=== PATIENT | female | born 1940 | race African-American/Black ===

== ENCOUNTER 2017-10-30 14:20 | Inpatient (IN) | payer MEDICARE, MEDICAID ==
[~2017-10-30] VITALS: Ht 157.5 cm; Wt 68.5 kg
[~2017-10-30 14:20] MED LIST: ARIP15TA7; ASPI-1159 PO; ATOR20TA PO; ATOR20TA65; CALC0.5C7; DOCU-138 PO; IBUP-2030; IRBE300T18; IRBE300T42 PO; NAPR-677; NEBI10TA2 PO; OXYC30TA2; PANT40TA4 PO; PROAIR; VERA240C2 PO
[2017-10-30 15:00] VITALS: BP 114/61
[2017-10-30] MEDS ORDERED: DIPHENHYDRAMINE 25MG CAPSULE PO PRN (16:00)
[2017-10-30] MEDS ORDERED: GUAIFENESIN 200MG/10ML SUGAR FREE UDC PO PRN (16:00)
[2017-10-30 16:30] LABS: BASOPHILS % 0.4 % (0.0-2.0); EOSINOPHILS % 1.7 % (0.0-5.0); HEMATOCRIT. 33.4 % (36.0-48.0); HEMOGLOBIN. 11.4 g/dL (12.0-16.0); LYMPHOCYTES % 24.5 % (20.0-50.0); MEAN CORPUSCULAR HEMOGLOBIN 31.9 pg (28.0-32.0); MEAN CORPUSCULAR VOLUME 93.2 fL (81.0-99.0); MEAN PLATELET VOLUME 8.1 fl (7.4-10.4); MONOCYTES % 14.2 % (2.0-8.0); NEUTROPHILS % 59.2 % (40.0-76.0); PLATELET 229 x1000/uL (130-400); RED BLOOD CELL COUNT 3.59 mill/uL (4.2-5.4)
[2017-10-30 16:40] LABS: CHLORIDE 104 mEq/L (98-107)
[2017-10-30 16:52] LABS: PREALBUMIN 8.3 mg/dL (20.0-40.0)
[2017-10-30] MEDS: NEBIVOLOL HCL 5 MG TABLET PO SCH ×2 (17:00→18:30)
[2017-10-30] MEDS ORDERED: RIVAROXABAN 10 MG TABLET PO SCH (17:00)
[2017-10-30] MEDS ORDERED: NITROGLYCERIN 0.4MG TABLET SL SL PRN (17:00)
[2017-10-30] MEDS ORDERED: NA PHOS,M-B/NA PHOS,DI-BA ENEMA 118ML PR PRN (17:00)
[2017-10-30] MEDS ORDERED: DOCUSATE SODIUM 100MG CAPSULE PO SCH (17:00)
[2017-10-30] MEDS ORDERED: IPRATROPIUM/ALBUTEROL 0.5-3(2.5)MG/3ML NEB HHN PRN (17:00)
[2017-10-30] MEDS ORDERED: HYDROCODONE/ACETAMINOPHEN 10/325MG TABLET PO PRN (17:00)
[2017-10-30] MEDS ORDERED: CLONIDINE 0.1MG TABLET PO PRN (17:00)
[2017-10-30] MEDS ORDERED: ONDANSETRON 4MG ODT PO PRN (17:00)
[2017-10-30] MEDS ORDERED: MAGNESIUM/ALUMINUM HYDROXIDE/SIMETHICONE 30ML UDC PO PRN (17:00)
[2017-10-30] MEDS: DOCUSATE SODIUM 100MG CAPSULE PO SCH (17:12)
[2017-10-30] MEDS: FERROUS SULFATE 300MG/5ML UDC PO SCH (17:13)
[2017-10-30] MEDS: RIVAROXABAN 20 MG TABLET PO SCH (17:13)
[2017-10-30] MEDS: DILTIAZEM HCL 30MG TABLET PO SCH ×2 (17:14→23:38)
[2017-10-30 20:00] VITALS: BP 106/64
[2017-10-30] MEDS: FAMOTIDINE 20MG TABLET PO SCH (22:30)
[2017-10-30] MEDS: ASCORBIC ACID 500 MG TABLET PO SCH (22:30)
[2017-10-31] MEDS: ACETAMINOPHEN 325MG TABLET PO PRN ×3 (01:48→18:27)
[2017-10-31] MEDS: DILTIAZEM HCL 30MG TABLET PO SCH ×3 (06:00→18:00)
[2017-10-31 08:00] VITALS: BP 128/77
[2017-10-31] MEDS: DOCUSATE SODIUM 100MG CAPSULE PO SCH ×2 (08:29→16:28)
[2017-10-31] MEDS: ZINC SULFATE 220 MG ( 50 ) CAPSULE PO SCH (08:29)
[2017-10-31] MEDS: ASCORBIC ACID 500 MG TABLET PO SCH ×2 (08:29→20:56)
[2017-10-31] MEDS: NEBIVOLOL HCL 5 MG TABLET PO SCH ×2 (08:31→17:00)
[2017-10-31] MEDS: FERROUS SULFATE 300MG/5ML UDC PO SCH ×3 (08:34→16:28)
[2017-10-31] MEDS: RIVAROXABAN 20 MG TABLET PO SCH (16:29)
[2017-10-31 20:00] VITALS: BP 109/75
[2017-10-31] MEDS: FAMOTIDINE 20MG TABLET PO SCH (20:56)
[2017-10-31 22:34] LABS: CLARITY URINE CLEAR (CLEAR); COLOR URINE YELLOW (YELLOW); KETONES URINE NEGATIVE (NEGATIVE); LEUKOCYTE ESTERASE URINE TRACE (NEGATIVE); NITRITE URINE NEGATIVE (NEGATIVE); OCCULT BLOOD URINE NEGATIVE (NEGATIVE); PROTEIN URINE NEGATIVE (NEGATIVE); SPECIFIC GRAVITY URINE 1.012 (1.005-1.030)
[2017-11-01] MEDS: ACETAMINOPHEN 325MG TABLET PO PRN (02:56)
[2017-11-01] MEDS: DILTIAZEM HCL 30MG TABLET PO SCH ×2 (06:00)
[2017-11-01 06:36] LABS: BASOPHILS % 0.9 % (0.0-2.0); EOSINOPHILS % 1.9 % (0.0-5.0); HEMATOCRIT. 33.2 % (36.0-48.0); HEMOGLOBIN. 10.8 g/dL (12.0-16.0); LYMPHOCYTES % 38.7 % (20.0-50.0); MEAN CORPUSCULAR HEMOGLOBIN 30.6 pg (28.0-32.0); MEAN PLATELET VOLUME 8.3 fl (7.4-10.4); MONOCYTES % 13.5 % (2.0-8.0); PLATELET 261 x1000/uL (130-400); RED BLOOD CELL COUNT 3.53 mill/uL (4.2-5.4); RED CELL DISTRIBUTION WIDTH 13.9 % (11.6-14.6)
[2017-11-01 07:48] LABS: CHLORIDE 102 mEq/L (98-107)
[2017-11-01 07:52] LABS: FOLIC ACID (FOLATE) SERUM 16.1 ng/mL (>5.38)
[2017-11-01 08:00] VITALS: BP 95/72
[2017-11-01 08:05] LABS: PHOSPHORUS 3.2 mg/dL (2.5-4.9)
[2017-11-01 08:07] LABS: LDL CHOLESTEROL 91 mg/dL (5-100); TOTAL IRON BINDING CAPACITY 146 ug/dL (250-450)
[2017-11-01 08:08] LABS: HDL CHOLESTEROL 50 mg/dL (40-59)
[2017-11-01] MEDS: NEBIVOLOL HCL 5 MG TABLET PO SCH (09:00)
[2017-11-01] MEDS: ASCORBIC ACID 500 MG TABLET PO SCH (09:00)
[2017-11-01] MEDS: FERROUS SULFATE 300MG/5ML UDC PO SCH (09:00)
[2017-11-01] MEDS: DOCUSATE SODIUM 100MG CAPSULE PO SCH (09:00)
[2017-11-01] MEDS: ZINC SULFATE 220 MG ( 50 ) CAPSULE PO SCH (09:00)
[2017-11-04 13:07] LABS: 25-HYDROXY VITAMIN D3 20 ng/mL (.)
== END 2017-11-01 09:15 | disposition left against medical advice (07) | DRG 535 ==
PROVIDERS: ADMIT Physical Medicine & Rehabilitation Spinal Cord Injury Medicine; ATTEND Internal Medicine
DX: S72.044A Nondisplaced fracture of base of neck of right femur, initial encounter for closed fracture (principal); E43 Unspecified severe protein-calorie malnutrition; I95.9 Hypotension, unspecified; I11.0 Hypertensive heart disease with heart failure; I43 Cardiomyopathy in diseases classified elsewhere; I48.0 Paroxysmal atrial fibrillation; I50.9 Heart failure, unspecified; I08.1 Rheumatic disorders of both mitral and tricuspid valves; D64.9 Anemia, unspecified; E78.00 Pure hypercholesterolemia, unspecified; M19.90 Unspecified osteoarthritis, unspecified site; Z96.659 Presence of unspecified artificial knee joint; K21.9 Gastro-esophageal reflux disease without esophagitis; M79.609 Pain in unspecified limb; R26.9 Unspecified abnormalities of gait and mobility; R53.81 Other malaise; E87.6 Hypokalemia; D72.819 Decreased white blood cell count, unspecified; Z68.27 Body mass index [BMI] 27.0-27.9, adult; Z88.0 Allergy status to penicillin; W18.39XA Other fall on same level, initial encounter; Y93.89 Activity, other specified; Y92.89 Other specified places as the place of occurrence of the external cause; Y99.8 Other external cause status
CPT/HCPCS: 36415; 80053; 80061; 81003; 82270; 82306; 82607; 82728; 82746; 83036; 83540; 83550; 83735; 84100; 84134; 84443; 85025; 87086; 92523; 93970; 97110; 97162; 97166; 97530; 97535

== ENCOUNTER 2018-01-24 13:14 | Emergency (ER) | payer MEDICAID, MEDICARE ==
[~2018-01-24] VITALS: Ht 160 cm; Wt 59.0 kg
[2018-01-24] MEDS ORDERED: SODIUM CHLORIDE 0.9% 1,000 ML IV ONE (14:06)
[2018-01-24] MEDS ORDERED: ONDANSETRON HCL 4MG/2ML VIAL IV STA (14:06)
[2018-01-24] MEDS ORDERED: MORPHINE SULFATE 4 MG/ML CPJ (NOT FOR IM USE) IV STA (14:06)
[2018-01-24 14:23] LABS: BASOPHILS % 1.2 % (0.0-2.0); EOSINOPHILS % 3.5 % (0.0-5.0); HEMATOCRIT. 36.2 % (36.0-48.0); HEMOGLOBIN. 12.3 g/dL (12.0-16.0); LYMPHOCYTES % 33.3 % (20.0-50.0); MEAN CORPUSCULAR HEMOGLOBIN 32.6 pg (28.0-32.0); MEAN CORPUSCULAR VOLUME 96.2 fL (81.0-99.0); MEAN PLATELET VOLUME 7.5 fl (7.4-10.4); MONOCYTES % 3.6 % (2.0-8.0); NEUTROPHILS % 58.4 % (40.0-76.0); PLATELET 344 x1000/uL (130-400); RED BLOOD CELL COUNT 3.76 mill/uL (4.2-5.4); RED CELL DISTRIBUTION WIDTH 12.6 % (11.6-14.6)
[2018-01-24 14:26] LABS: CHLORIDE 106 mEq/L (98-107)
[2018-01-24 14:51] LABS: PROTHROMBIN TIME 10.6 sec (9.4-11.6)
[2018-01-24 15:35] LABS: CLARITY URINE CLEAR (CLEAR); COLOR URINE YELLOW (YELLOW); KETONES URINE NEGATIVE (NEGATIVE); LEUKOCYTE ESTERASE URINE NEGATIVE (NEGATIVE); NITRITE URINE NEGATIVE (NEGATIVE); OCCULT BLOOD URINE NEGATIVE (NEGATIVE); PROTEIN URINE NEGATIVE (NEGATIVE); SPECIFIC GRAVITY URINE 1.011 (1.005-1.030)
[2018-01-24] MEDS ORDERED: KETOROLAC 15MG/ML VIAL IV ONE (17:15)
[2018-01-24 18:17] VITALS: BP 130/78
== END 2018-01-24 18:23 | disposition home or self-care (01) ==
LOC: ER 13:14 → CANBEDREQ 20:49
DX: G89.18 Other acute postprocedural pain (principal); M25.551 Pain in right hip; I48.2 Chronic atrial fibrillation; I25.10 Atherosclerotic heart disease of native coronary artery without angina pectoris; K21.9 Gastro-esophageal reflux disease without esophagitis; E78.00 Pure hypercholesterolemia, unspecified; I10 Essential (primary) hypertension; Z96.653 Presence of artificial knee joint, bilateral; Z79.82 Long term (current) use of aspirin; Z88.0 Allergy status to penicillin
CPT/HCPCS: 36415; 71045; 73502; 73562; 73590; 73700; 74176; 80053; 81003; 83690; 83880; 84484; 85025; 85610; 85730; 93005; 93970; 96374; 96375; 99285; J1885; J2270; J2405; J7030

== ENCOUNTER 2018-04-26 05:19 | Inpatient (IN) | payer MEDICARE, MEDICAID ==
[~2018-04-26] VITALS: Ht 160 cm; Wt 68.6 kg
[~2018-04-26 05:19] MED LIST changes: -ARIP15TA7; +ARIP15TA7 PO; -ATOR20TA65; +ATOR20TA65 PO; -CALC0.5C7; +CALC0.5C7 PO; -IBUP-2030; +IBUP-2030 PO; -IRBE300T18; +IRBE300T18 PO; -NAPR-677; +NAPR-677 PO; -OXYC30TA2; +OXYC30TA2 PO
[2018-04-26] MEDS ORDERED: ACETAMINOPHEN WITH CODEINE 300/30MG TABLET PO STA (08:19)
[2018-04-26 09:08] LABS: BASOPHILS % 1.1 % (0.0-2.0); EOSINOPHILS % 1.5 % (0.0-5.0); HEMATOCRIT. 32.6 % (36.0-48.0); HEMOGLOBIN. 10.7 g/dL (12.0-16.0); MEAN CORPUSCULAR HEMOGLOBIN 31.2 pg (28.0-32.0); MEAN CORPUSCULAR VOLUME 95.3 fL (81.0-99.0); MEAN PLATELET VOLUME 7.9 fl (7.4-10.4); MONOCYTES % 9.3 % (2.0-8.0); NEUTROPHILS % 41.1 % (40.0-76.0); PLATELET 225 x1000/uL (130-400); RED BLOOD CELL COUNT 3.42 mill/uL (4.2-5.4); RED CELL DISTRIBUTION WIDTH 13.9 % (11.6-14.6)
[2018-04-26 09:13] LABS: CHLORIDE 111 mEq/L (98-107)
[2018-04-26 09:32] LABS: INR 1.1; PROTHROMBIN TIME 11.4 sec (9.1-11.1)
[2018-04-26] MEDS ORDERED: FUROSEMIDE 20MG/2ML VIAL IVP ONE (10:30)
[2018-04-26] MEDS ORDERED: POTASSIUM CHLORIDE 10MEQ TABLET SR PO SCH (12:30)
[2018-04-26] MEDS ORDERED: DOCUSATE SODIUM 100MG CAPSULE PO PRN ×2 (14:30→15:00)
[2018-04-26] MEDS ORDERED: ENOXAPARIN 40MG/0.4ML SYR SUBCUT SCH (14:30)
[2018-04-26] MEDS ORDERED: DIPHENHYDRAMINE 50MG/ML VIAL IV PRN ×2 (14:30→15:00)
[2018-04-26] MEDS ORDERED: ACETAMINOPHEN 325MG TABLET PO PRN ×2 (14:30→15:00)
[2018-04-26] MEDS ORDERED: ONDANSETRON HCL 4MG/2ML INJ IV PRN ×2 (14:30→15:00)
[2018-04-26] MEDS ORDERED: CLONIDINE 0.1MG TABLET PO PRN ×2 (14:30→15:00)
[2018-04-26] MEDS ORDERED: GUAIFENESIN 200MG/10ML SUGAR FREE UDC PO PRN ×2 (14:30→15:00)
[2018-04-26] MEDS ORDERED: HYDROCODONE/ACETAMINOPHEN 5/325MG TABLET PO PRN (14:30)
[2018-04-26] MEDS ORDERED: NA PHOS,M-B/NA PHOS,DI-BA ENEMA 118ML PR PRN ×2 (14:30→15:00)
[2018-04-26] MEDS ORDERED: LORAZEPAM 2MG/ML CPJ IV PRN ×2 (14:30→15:00)
[2018-04-26] MEDS ORDERED: IPRATROPIUM/ALBUTEROL 0.5-3(2.5)MG/3ML NEB INH PRN (14:30)
[2018-04-26] MEDS ORDERED: MORPHINE SULFATE 2 MG/ML CPJ (NOT FOR IM USE) IV PRN (14:30)
[2018-04-26] MEDS ORDERED: MAGNESIUM/ALUMINUM HYDROXIDE/SIMETHICONE 30ML UDC PO PRN ×2 (14:30→15:00)
[2018-04-26] MEDS ORDERED: MORPHINE SULFATE 4 MG/ML CPJ (NOT FOR IM USE) IV PRN (15:00)
[2018-04-26 15:30] VITALS: BP 147/82
[2018-04-26] MEDS: FUROSEMIDE 40MG/4ML VIAL IV SCH (17:07)
[2018-04-26] MEDS: ENOXAPARIN 40MG/0.4ML SYR SUBCUT SCH (17:07)
[2018-04-26] MEDS: HYDROCODONE/ACETAMINOPHEN 5/325MG TABLET PO PRN (17:08)
[2018-04-26 20:00] VITALS: BP 116/71
[2018-04-26 21:07] LABS: CHLORIDE 110 mEq/L (98-107)
[2018-04-27] VITALS: BP 110/70
[2018-04-27 01:48] LABS: CREATINE KINASE 53 IU/L (26-192)
[2018-04-27 01:51] LABS: CREATINE KINASE MB FRACTION 1.1 ng/mL (0.5-3.6)
[2018-04-27 04:00] VITALS: BP 126/80
[2018-04-27 06:37] LABS: BASOPHILS % 0.4 % (0.0-2.0); EOSINOPHILS % 1.9 % (0.0-5.0); HEMATOCRIT. 32.3 % (36.0-48.0); HEMOGLOBIN. 10.7 g/dL (12.0-16.0); LYMPHOCYTES % 40.8 % (20.0-50.0); MEAN CORPUSCULAR HEMOGLOBIN 31.3 pg (28.0-32.0); MEAN CORPUSCULAR VOLUME 94.5 fL (81.0-99.0); MEAN PLATELET VOLUME 7.8 fl (7.4-10.4); MONOCYTES % 10.2 % (2.0-8.0); NEUTROPHILS % 46.7 % (40.0-76.0); PLATELET 220 x1000/uL (130-400); RED BLOOD CELL COUNT 3.41 mill/uL (4.2-5.4); RED CELL DISTRIBUTION WIDTH 13.8 % (11.6-14.6)
[2018-04-27] MEDS: FUROSEMIDE 40MG/4ML VIAL IV SCH ×2 (06:40→19:13)
[2018-04-27 06:54] LABS: CHLORIDE 111 mEq/L (98-107)
[2018-04-27 07:07] LABS: LDL CHOLESTEROL 75 mg/dL (5-100)
[2018-04-27 07:08] LABS: CREATINE KINASE 57 IU/L (26-192); CREATINE KINASE MB FRACTION 1.4 ng/mL (0.5-3.6)
[2018-04-27 07:09] LABS: HDL CHOLESTEROL 67 mg/dL (40-59); T4 FREE 1.48 ng/dL (0.76-1.46)
[2018-04-27 08:00] VITALS: BP 117/79
[2018-04-27] MEDS: ASPIRIN 81MG EC TABLET PO SCH (08:00)
[2018-04-27] MEDS ORDERED: POTASSIUM CHLORIDE 20MEQ TABLET SR PO SCH (08:45)
[2018-04-27] MEDS ORDERED: FUROSEMIDE 40MG/4ML VIAL IV SCH (09:00)
[2018-04-27] MEDS: HYDROCODONE/ACETAMINOPHEN 5/325MG TABLET PO PRN ×2 (11:08→22:33)
[2018-04-27 12:00] VITALS: BP 86/59
[2018-04-27 16:00] VITALS: BP 94/50
[2018-04-27] MEDS: ENOXAPARIN 40MG/0.4ML SYR SUBCUT SCH (19:15)
[2018-04-27 20:00] VITALS: BP 98/88
[2018-04-28] VITALS: BP 126/54
[2018-04-28] MEDS: IPRATROPIUM/ALBUTEROL 0.5-3(2.5)MG/3ML NEB INH PRN ×2 (01:38→13:18)
[2018-04-28 04:10] VITALS: BP 91/56
[2018-04-28] MEDS: FUROSEMIDE 40MG/4ML VIAL IV SCH ×2 (06:16→18:06)
[2018-04-28 06:48] LABS: HEMATOCRIT 34.7 % (36.0-48.0); HEMOGLOBIN 11.7 g/dL (12.0-16.0); MEAN CORPUSCULAR HEMOGLOBIN 31.6 pg (28.0-32.0); MEAN CORPUSCULAR VOLUME 93.9 fL (81.0-99.0); PLATELET 254 x1000/uL (130-400); RED BLOOD CELL COUNT 3.69 mill/uL (4.2-5.4); RED CELL DISTRIBUTION WIDTH 13.9 % (11.6-14.6)
[2018-04-28 08:37] VITALS: BP 123/51
[2018-04-28] MEDS ORDERED: POTASSIUM CHLORIDE 20MEQ TABLET SR PO SCH (09:45)
[2018-04-28] MEDS ORDERED: POTASSIUM CHLORIDE 20MEQ TABLET SR PO NR (09:45)
[2018-04-28] MEDS: ASPIRIN 81MG EC TABLET PO SCH (10:47)
[2018-04-28] MEDS: HYDROCODONE/ACETAMINOPHEN 5/325MG TABLET PO PRN ×2 (11:59→21:56)
[2018-04-28 12:49] VITALS: BP 100/65
[2018-04-28] MEDS ORDERED: VERAPAMIL HCL 2.5 MG/1 ML 2ML VIAL IV PRN (15:15)
[2018-04-28 17:08] VITALS: BP 130/54
[2018-04-28] MEDS: DIGOXIN 125MCG TABLET PO SCH (18:06)
[2018-04-28] MEDS: RIVAROXABAN 15 MG TABLET PO SCH (18:06)
[2018-04-28 20:00] VITALS: BP 96/58
[2018-04-28] MEDS: DILTIAZEM HCL 60MG TABLET PO SCH (21:50)
[2018-04-29] VITALS: BP 90/61
[2018-04-29 00:30] VITALS: BP 100/69
[2018-04-29 04:00] VITALS: BP 120/69
[2018-04-29] MEDS: HYDROCODONE/ACETAMINOPHEN 5/325MG TABLET PO PRN (04:59)
[2018-04-29] MEDS: DILTIAZEM HCL 60MG TABLET PO SCH (05:53)
[2018-04-29] MEDS: FUROSEMIDE 40MG/4ML VIAL IV SCH ×2 (06:15→17:49)
[2018-04-29 07:14] LABS: CHLORIDE 98 mEq/L (98-107)
[2018-04-29 07:16] LABS: HEMATOCRIT 35.3 % (36.0-48.0); HEMOGLOBIN 11.7 g/dL (12.0-16.0); MEAN CORPUSCULAR HEMOGLOBIN 31.2 pg (28.0-32.0); MEAN CORPUSCULAR VOLUME 94.4 fL (81.0-99.0); PLATELET 233 x1000/uL (130-400); RED BLOOD CELL COUNT 3.75 mill/uL (4.2-5.4); RED CELL DISTRIBUTION WIDTH 13.9 % (11.6-14.6)
[2018-04-29 07:20] LABS: LDL CHOLESTEROL 83 mg/dL (5-100)
[2018-04-29 07:22] LABS: HDL CHOLESTEROL 70 mg/dL (40-59)
[2018-04-29] MEDS: ASPIRIN 81MG EC TABLET PO SCH (09:42)
[2018-04-29 12:00] VITALS: BP 94/61
[2018-04-29] MEDS ORDERED: DILTIAZEM HCL 120MG CAPSULE CD 24HR PO SCH (12:45)
[2018-04-29 16:00] VITALS: BP 95/51
[2018-04-29] MEDS: DIGOXIN 125MCG TABLET PO SCH (17:49)
[2018-04-29] MEDS: RIVAROXABAN 15 MG TABLET PO SCH (17:49)
[2018-04-29 19:49] VITALS: BP 99/62
== END 2018-04-29 20:25 | disposition home or self-care (01) | DRG 308 ==
LOC: ER 05:19 → 6WST 12:32 → EDBEDREQ 12:33 → EDBEDREQTM 12:33 → ENRESERV 12:52 → CANBEDREQ 04-27 11:05
PROVIDERS: ADMIT Internal Medicine; ATTEND Internal Medicine
DX: I48.91 Unspecified atrial fibrillation (principal); I50.23 Acute on chronic systolic (congestive) heart failure; I11.0 Hypertensive heart disease with heart failure; I48.2 Chronic atrial fibrillation; E87.6 Hypokalemia; I42.0 Dilated cardiomyopathy; E78.00 Pure hypercholesterolemia, unspecified; I08.1 Rheumatic disorders of both mitral and tricuspid valves; I25.10 Atherosclerotic heart disease of native coronary artery without angina pectoris; M19.90 Unspecified osteoarthritis, unspecified site; Z96.653 Presence of artificial knee joint, bilateral; Z79.01 Long term (current) use of anticoagulants; Z87.81 Personal history of (healed) traumatic fracture; Z79.82 Long term (current) use of aspirin; Z79.899 Other long term (current) drug therapy; Z88.0 Allergy status to penicillin
CPT/HCPCS: 36415; 71045; 80048; 80053; 80061; 82550; 82553; 83735; 83880; 84439; 84443; 84484; 85025; 85027; 85610; 93005; 93306; 93970; 94640; 96374; 99285; J1650; J1940; J7620

== ENCOUNTER 2018-05-30 16:57 | Inpatient (IN) | payer MEDICARE, MEDICAID ==
[~2018-05-30] VITALS: Ht 154.9 cm; Wt 60.8 kg
[2018-05-30 19:43] LABS: BASOPHILS % 0.3 % (0.0-2.0); EOSINOPHILS % 1.4 % (0.0-5.0); HEMATOCRIT. 28.7 % (36.0-48.0); HEMOGLOBIN. 9.4 g/dL (12.0-16.0); LYMPHOCYTES % 40.9 % (20.0-50.0); MEAN CORPUSCULAR HEMOGLOBIN 31.4 pg (28.0-32.0); MEAN CORPUSCULAR VOLUME 96.3 fL (81.0-99.0); MEAN PLATELET VOLUME 7.4 fl (7.4-10.4); MONOCYTES % 10.3 % (2.0-8.0); NEUTROPHILS % 47.1 % (40.0-76.0); PLATELET 205 x1000/uL (130-400); RED BLOOD CELL COUNT 2.98 mill/uL (4.2-5.4); RED CELL DISTRIBUTION WIDTH 13.8 % (11.6-14.6)
[2018-05-30 19:50] LABS: CHLORIDE 108 mEq/L (98-107)
[2018-05-30] MEDS ORDERED: MAGNESIUM/ALUMINUM HYDROXIDE/SIMETHICONE 30ML UDC PO PRN (21:45)
[2018-05-30] MEDS ORDERED: ONDANSETRON HCL 4MG/2ML INJ IV PRN (21:45)
[2018-05-30] MEDS ORDERED: IPRATROPIUM/ALBUTEROL 0.5-3(2.5)MG/3ML NEB INH PRN (21:45)
[2018-05-30] MEDS ORDERED: DOCUSATE SODIUM 100MG CAPSULE PO PRN (21:45)
[2018-05-30] MEDS ORDERED: ZOLPIDEM TARTRATE 5MG TABLET PO PRN (21:45)
[2018-05-30] MEDS ORDERED: NITROGLYCERIN 0.4MG TABLET SL SL PRN (21:45)
[2018-05-30] MEDS ORDERED: NA PHOS,M-B/NA PHOS,DI-BA ENEMA 118ML PR PRN (21:45)
[2018-05-30] MEDS ORDERED: CLONIDINE 0.1MG TABLET PO PRN (21:45)
[2018-05-30] MEDS ORDERED: ACETAMINOPHEN 325MG TABLET PO PRN (21:45)
[2018-05-30] MEDS ORDERED: GUAIFENESIN 200MG/10ML SUGAR FREE UDC PO PRN (21:45)
[2018-05-30 22:42] LABS: FOLIC ACID (FOLATE) SERUM 10.9 ng/mL (>5.38)
[2018-05-30 23:29] VITALS: BP 125/69
[2018-05-30 23:47] VITALS: BP 125/69
[2018-05-30 23:54] VITALS: BP 125/69
[2018-05-31] MEDS ORDERED: POTASSIUM CHLORIDE 20MEQ TABLET SR PO NR
[2018-05-31] MEDS: DILTIAZEM HCL 60MG TABLET PO SCH ×2 (00:18→06:00)
[2018-05-31] MEDS: MORPHINE SULFATE 4 MG/ML CPJ (NOT FOR IM USE) IV PRN ×2 (00:32→05:59)
[2018-05-31 00:52] LABS: CREATINE KINASE 46 IU/L (26-192); CREATINE KINASE MB FRACTION < 1.0 ng/mL (0.5-3.6)
[2018-05-31] MEDS ORDERED: KCL 20MEQ/100ML PREMIX 100 ML IV NR (01:00)
[2018-05-31 03:58] VITALS: BP 95/47
[2018-05-31] MEDS: PANTOPRAZOLE SODIUM 40 MG/VIAL IV SCH ×2 (06:00→19:11)
[2018-05-31 07:39] VITALS: BP 86/59
[2018-05-31 07:46] LABS: CREATINE KINASE 42 IU/L (26-192); CREATINE KINASE MB FRACTION < 1.0 ng/mL (0.5-3.6)
[2018-05-31 12:42] VITALS: BP 88/55
[2018-05-31] MEDS ORDERED: MECLIZINE 12.5MG TABLET PO PRN (13:45)
[2018-05-31] MEDS: DILTIAZEM HCL 30MG TABLET PO SCH ×2 (14:00→21:12)
[2018-05-31] MEDS ORDERED: SODIUM CHLORIDE 0.9% 250 ML IV NR (14:00)
[2018-05-31] MEDS: MIDODRINE HCL 5MG TABLET PO SCH ×2 (15:20→19:11)
[2018-05-31 16:44] VITALS: BP 88/58
[2018-05-31] MEDS: RIVAROXABAN 15 MG TABLET PO SCH (19:11)
[2018-05-31 20:19] VITALS: BP 101/62
[2018-05-31] MEDS: TRAMADOL 50MG TABLET PO PRN (21:13)
[2018-06-01] VITALS: BP 90/57
[2018-06-01 03:38] VITALS: BP 125/87
[2018-06-01] MEDS: TRAMADOL 50MG TABLET PO PRN (03:45)
[2018-06-01] MEDS: PANTOPRAZOLE SODIUM 40 MG/VIAL IV SCH (06:12)
[2018-06-01] MEDS: DILTIAZEM HCL 30MG TABLET PO SCH ×3 (06:12→21:03)
[2018-06-01 07:14] LABS: BASOPHILS % 0.7 % (0.0-2.0); EOSINOPHILS % 2.1 % (0.0-5.0); HEMATOCRIT. 29.5 % (36.0-48.0); HEMOGLOBIN. 9.7 g/dL (12.0-16.0); LYMPHOCYTES % 41.4 % (20.0-50.0); MEAN CORPUSCULAR HEMOGLOBIN 31.7 pg (28.0-32.0); MEAN CORPUSCULAR VOLUME 96.2 fL (81.0-99.0); MEAN PLATELET VOLUME 7.8 fl (7.4-10.4); MONOCYTES % 11.6 % (2.0-8.0); NEUTROPHILS % 44.2 % (40.0-76.0); PLATELET 205 x1000/uL (130-400); RED BLOOD CELL COUNT 3.06 mill/uL (4.2-5.4); RED CELL DISTRIBUTION WIDTH 14.3 % (11.6-14.6)
[2018-06-01 07:52] LABS: CHLORIDE 107 mEq/L (98-107)
[2018-06-01 08:00] VITALS: BP 90/56
[2018-06-01] MEDS: MIDODRINE HCL 5MG TABLET PO SCH ×3 (09:05→17:18)
[2018-06-01 12:00] VITALS: BP 109/66
[2018-06-01 15:41] VITALS: BP 97/50
[2018-06-01] MEDS: RIVAROXABAN 15 MG TABLET PO SCH (17:18)
[2018-06-01 20:22] VITALS: BP 97/50
[2018-06-02] VITALS: BP 99/62
[2018-06-02] MEDS: TRAMADOL 50MG TABLET PO PRN ×2 (00:29→13:01)
[2018-06-02 04:00] VITALS: BP 93/57
[2018-06-02] MEDS: DILTIAZEM HCL 30MG TABLET PO SCH ×3 (05:29→21:53)
[2018-06-02] MEDS: PANTOPRAZOLE SODIUM 40 MG/VIAL IV SCH ×2 (06:35→17:30)
[2018-06-02 08:03] VITALS: BP 78/58
[2018-06-02] MEDS: MIDODRINE HCL 5MG TABLET PO SCH ×3 (08:57→17:26)
[2018-06-02 11:42] VITALS: BP 92/68
[2018-06-02 16:36] VITALS: BP 95/63
[2018-06-02] MEDS ORDERED: RIVAROXABAN 20 MG TABLET PO SCH (17:00)
[2018-06-02 20:00] VITALS: BP 106/62
[2018-06-02] MEDS ORDERED: ATORVASTATIN CALCIUM 10MG TABLET PO SCH (21:00)
[2018-06-03] VITALS: BP 94/61
[2018-06-03 04:00] VITALS: BP 91/56
[2018-06-03] MEDS: DILTIAZEM HCL 30MG TABLET PO SCH (06:41)
[2018-06-03] MEDS: MIDODRINE HCL 5MG TABLET PO SCH (08:24)
[2018-06-03] MEDS ORDERED: FAMOTIDINE 20MG TABLET PO SCH (09:00)
== END 2018-06-03 08:55 | disposition left against medical advice (07) | DRG 206 ==
LOC: ER 16:57 → 6WST 21:02 → EDBEDREQTM 21:04 → EDBEDREQ 21:04 → ENRESERV 21:16 → SUPCPDRO 21:30
PROVIDERS: ADMIT Internal Medicine; ATTEND Internal Medicine
DX: M94.0 Chondrocostal junction syndrome [Tietze] (principal); E44.0 Moderate protein-calorie malnutrition; I42.0 Dilated cardiomyopathy; I48.2 Chronic atrial fibrillation; I11.0 Hypertensive heart disease with heart failure; D63.8 Anemia in other chronic diseases classified elsewhere; E87.6 Hypokalemia; I50.9 Heart failure, unspecified; E78.00 Pure hypercholesterolemia, unspecified; F29 Unspecified psychosis not due to a substance or known physiological condition; I95.9 Hypotension, unspecified; Z53.21 Procedure and treatment not carried out due to patient leaving prior to being seen by health care provider; G89.29 Other chronic pain; I08.1 Rheumatic disorders of both mitral and tricuspid valves; M19.90 Unspecified osteoarthritis, unspecified site; Z79.01 Long term (current) use of anticoagulants; Z79.899 Other long term (current) drug therapy; Z68.25 Body mass index [BMI] 25.0-25.9, adult; Z79.82 Long term (current) use of aspirin; Z88.0 Allergy status to penicillin
CPT/HCPCS: 36415; 71045; 80061; 82550; 82553; 82607; 82746; 83540; 83550; 83735; 83880; 84443; 84484; 85379; 93005; 93970; 97162; 99285; A6261; C9113; J2270; J3480; J7030; J7040; J7050

== ENCOUNTER 2018-06-20 09:37 | Inpatient (IN) | payer MEDICARE, MEDICAID ==
[~2018-06-20] VITALS: Ht 154.9 cm; Wt 63.0 kg
[2018-06-20] MEDS ORDERED: IPRATROPIUM BROMIDE (0.02%) 0.5MG/2.5ML NEB HHN STA (10:26)
[2018-06-20] MEDS ORDERED: ALBUTEROL (0.083%) 2.5MG/3ML NEB HHN STA (10:26)
[2018-06-20 11:07] LABS: BASOPHILS % 0.3 % (0.0-2.0); EOSINOPHILS % 0.9 % (0.0-5.0); HEMATOCRIT. 30.4 % (36.0-48.0); LYMPHOCYTES % 26.5 % (20.0-50.0); MEAN CORPUSCULAR HEMOGLOBIN 32.2 pg (28.0-32.0); MEAN CORPUSCULAR VOLUME 98.3 fL (81.0-99.0); MEAN PLATELET VOLUME 7.7 fl (7.4-10.4); MONOCYTES % 9.4 % (2.0-8.0); NEUTROPHILS % 62.9 % (40.0-76.0); PLATELET 226 x1000/uL (130-400); RED CELL DISTRIBUTION WIDTH 14.6 % (11.6-14.6)
[2018-06-20 11:12] LABS: CHLORIDE 107 mEq/L (98-107)
[2018-06-20 11:19] LABS: INR 1.3; PARTIAL THROMBOPLASTIN TIME 30.5 sec (23.4-31.0); PROTHROMBIN TIME 13.1 sec (9.1-11.1)
[2018-06-20] MEDS ORDERED: FUROSEMIDE 40MG/4ML VIAL IVP ONE (11:30)
[2018-06-20] MEDS ORDERED: GUAIFENESIN 200MG/10ML SUGAR FREE UDC PO PRN (13:00)
[2018-06-20] MEDS ORDERED: MAGNESIUM/ALUMINUM HYDROXIDE/SIMETHICONE 30ML UDC PO PRN (13:00)
[2018-06-20] MEDS ORDERED: TRAMADOL 50MG TABLET PO PRN (13:00)
[2018-06-20] MEDS ORDERED: ACETAMINOPHEN 325MG TABLET PO PRN (13:00)
[2018-06-20] MEDS ORDERED: NITROGLYCERIN 0.4MG TABLET SL SL PRN (13:00)
[2018-06-20] MEDS ORDERED: ENOXAPARIN 40MG/0.4ML SYR SUBCUT SCH (13:00)
[2018-06-20] MEDS ORDERED: ZOLPIDEM TARTRATE 5MG TABLET PO PRN (13:00)
[2018-06-20] MEDS ORDERED: CLONIDINE 0.1MG TABLET PO PRN (13:00)
[2018-06-20] MEDS ORDERED: IPRATROPIUM/ALBUTEROL 0.5-3(2.5)MG/3ML NEB INH PRN (13:00)
[2018-06-20] MEDS ORDERED: NA PHOS,M-B/NA PHOS,DI-BA ENEMA 118ML PR PRN (13:00)
[2018-06-20 20:00] VITALS: BP 105/76
[2018-06-20 21:00] VITALS: BP 105/76
[2018-06-20] MEDS: SPIRONOLACTONE 25MG TABLET PO SCH (21:00)
[2018-06-20] MEDS: ASCORBIC ACID 500 MG TABLET PO SCH (21:00)
[2018-06-20] MEDS ORDERED: FAMOTIDINE 20MG TABLET PO SCH (21:00)
[2018-06-20] MEDS: FUROSEMIDE 40MG/4ML VIAL IVP SCH (21:00)
[2018-06-20] MEDS ORDERED: RIVAROXABAN 10 MG TABLET PO SCH (21:15)
[2018-06-20] MEDS: ATORVASTATIN CALCIUM 10MG TABLET PO SCH (22:22)
[2018-06-20] MEDS: FAMOTIDINE 20MG TABLET PO SCH (22:22)
[2018-06-20 23:17] LABS: CREATINE KINASE 80 IU/L (26-192)
[2018-06-20] MEDS: HYDROCODONE/ACETAMINOPHEN 5/325MG TABLET PO PRN (23:37)
[2018-06-21] VITALS: BP 97/63
[2018-06-21 04:00] VITALS: BP 119/74
[2018-06-21 08:00] VITALS: BP 107/76
[2018-06-21] MEDS: SPIRONOLACTONE 25MG TABLET PO SCH ×2 (09:45→21:36)
[2018-06-21] MEDS: FUROSEMIDE 40MG/4ML VIAL IVP SCH ×2 (09:45→18:36)
[2018-06-21] MEDS: ZINC SULFATE 220 MG ( 50 ) CAPSULE PO SCH (09:46)
[2018-06-21] MEDS: ASPIRIN 325MG EC TABLET PO SCH (09:46)
[2018-06-21] MEDS: FAMOTIDINE 20MG TABLET PO SCH ×2 (09:46→21:36)
[2018-06-21] MEDS: ASCORBIC ACID 500 MG TABLET PO SCH ×2 (09:47→21:36)
[2018-06-21 12:00] VITALS: BP 106/67
[2018-06-21] MEDS: ONDANSETRON HCL 4MG/2ML INJ IV PRN (13:32)
[2018-06-21 16:00] VITALS: BP 106/67
[2018-06-21] MEDS: RIVAROXABAN 20 MG TABLET PO SCH (18:36)
[2018-06-21 20:04] VITALS: BP 123/75
[2018-06-21] MEDS: DOCUSATE SODIUM 100MG CAPSULE PO PRN (21:35)
[2018-06-21] MEDS: ATORVASTATIN CALCIUM 10MG TABLET PO SCH (21:36)
[2018-06-21] MEDS: DILTIAZEM HCL 60MG TABLET PO SCH (21:36)
[2018-06-22 00:12] VITALS: BP 126/87
[2018-06-22 00:23] LABS: *AMPHETAMINES SCREEN URINE NEGATIVE (NEGATIVE); *BARBITURATES SCREEN URINE NEGATIVE (NEGATIVE); *BENZODIAZEPINES SCREEN URINE NEGATIVE (NEGATIVE); *COCAINE SCREEN URINE NEGATIVE (NEGATIVE); METHADONE URINE SCREEN NEGATIVE (NEGATIVE); OPIATES URINE SCREEN PRESUMTIVE POSITIVE (NEGATIVE); PHENCYCLIDINE URINE SCREEN NEGATIVE (NEGATIVE)
[2018-06-22 00:24] LABS: CANNABINOID URINE SCREEN NEGATIVE (NEGATIVE)
[2018-06-22 04:02] VITALS: BP 126/82
[2018-06-22] MEDS: HYDROCODONE/ACETAMINOPHEN 5/325MG TABLET PO PRN (04:41)
[2018-06-22] MEDS: DILTIAZEM HCL 60MG TABLET PO SCH ×4 (06:06→23:22)
[2018-06-22] MEDS: FUROSEMIDE 40MG/4ML VIAL IVP SCH ×2 (06:06→18:11)
[2018-06-22 08:00] VITALS: BP 104/63
[2018-06-22] MEDS: FAMOTIDINE 20MG TABLET PO SCH ×2 (09:03→20:33)
[2018-06-22] MEDS: ASPIRIN 325MG EC TABLET PO SCH (09:03)
[2018-06-22] MEDS: ASCORBIC ACID 500 MG TABLET PO SCH ×2 (09:03→20:33)
[2018-06-22] MEDS: SPIRONOLACTONE 25MG TABLET PO SCH ×2 (09:03→20:48)
[2018-06-22] MEDS: ZINC SULFATE 220 MG ( 50 ) CAPSULE PO SCH (09:03)
[2018-06-22 12:00] VITALS: BP 108/77
[2018-06-22 16:00] VITALS: BP 121/67
[2018-06-22] MEDS: RIVAROXABAN 20 MG TABLET PO SCH (18:06)
[2018-06-22 20:00] VITALS: BP 103/63
[2018-06-22] MEDS: ATORVASTATIN CALCIUM 10MG TABLET PO SCH (20:33)
[2018-06-22] MEDS: DOCUSATE SODIUM 100MG CAPSULE PO PRN (20:33)
[2018-06-23 00:04] VITALS: BP 122/80
[2018-06-23 04:00] VITALS: BP 136/76
[2018-06-23] MEDS: DILTIAZEM HCL 60MG TABLET PO SCH (06:54)
[2018-06-23] MEDS: FUROSEMIDE 40MG/4ML VIAL IVP SCH (06:54)
[2018-06-23] MEDS: ASPIRIN 325MG EC TABLET PO SCH (09:03)
[2018-06-23] MEDS: FAMOTIDINE 20MG TABLET PO SCH (09:03)
[2018-06-23] MEDS: ZINC SULFATE 220 MG ( 50 ) CAPSULE PO SCH (09:03)
[2018-06-23] MEDS: ASCORBIC ACID 500 MG TABLET PO SCH (09:04)
[2018-06-23] MEDS: SPIRONOLACTONE 25MG TABLET PO SCH (09:04)
[2018-06-23] MEDS: DOCUSATE SODIUM 100MG CAPSULE PO PRN (09:04)
[2018-06-23 11:54] VITALS: BP 109/70
[2018-06-23] MEDS: ONDANSETRON HCL 4MG/2ML INJ IV PRN (12:34)
== END 2018-06-23 14:58 | disposition home or self-care (01) | DRG 291 ==
LOC: ER 09:37 → 7WST 11:37 → EDBEDREQ 11:39 → ENRESERV 19:34
PROVIDERS: ADMIT Internal Medicine; ATTEND Internal Medicine
DX: I11.0 Hypertensive heart disease with heart failure (principal); J96.00 Acute respiratory failure, unspecified whether with hypoxia or hypercapnia; E44.1 Mild protein-calorie malnutrition; I50.43 Acute on chronic combined systolic (congestive) and diastolic (congestive) heart failure; I42.9 Cardiomyopathy, unspecified; I48.91 Unspecified atrial fibrillation; D63.8 Anemia in other chronic diseases classified elsewhere; E78.00 Pure hypercholesterolemia, unspecified; J44.9 Chronic obstructive pulmonary disease, unspecified; Z88.0 Allergy status to penicillin; Z79.82 Long term (current) use of aspirin; Z79.899 Other long term (current) drug therapy; Z68.26 Body mass index [BMI] 26.0-26.9, adult
CPT/HCPCS: 36415; 71045; 80305; 82550; 82553; 82962; 83880; 84484; 93005; 94640; 96374; 99291; J1940; J2405; J7611; J7620

== ENCOUNTER 2018-06-28 11:25 | Inpatient (IN) | payer MEDICARE, MEDICAID ==
[~2018-06-28] VITALS: Ht 154.9 cm; Wt 60.8 kg
[~2018-06-28 11:25] MED LIST changes: -ATOR20TA65 PO
[2018-06-28] MEDS ORDERED: HALOPERIDOL LACTATE 5MG/ML VIAL IM ONE (11:45)
[2018-06-28 12:31] LABS: BASOPHILS % 0.4 % (0.0-2.0); EOSINOPHILS % 0.7 % (0.0-5.0); HEMATOCRIT. 35.6 % (36.0-48.0); HEMOGLOBIN. 11.9 g/dL (12.0-16.0); MEAN CORPUSCULAR HEMOGLOBIN 32.1 pg (28.0-32.0); MEAN CORPUSCULAR VOLUME 95.9 fL (81.0-99.0); MEAN PLATELET VOLUME 8.1 fl (7.4-10.4); MONOCYTES % 9.2 % (2.0-8.0); NEUTROPHILS % 68.7 % (40.0-76.0); PLATELET 216 x1000/uL (130-400); RED BLOOD CELL COUNT 3.71 mill/uL (4.2-5.4); RED CELL DISTRIBUTION WIDTH 14.2 % (11.6-14.6)
[2018-06-28 12:38] LABS: CHLORIDE 93 mEq/L (98-107)
[2018-06-28] MEDS ORDERED: DILTIAZEM HCL 180MG CAPSULE CD 24HR PO ONE (12:45)
[2018-06-28] MEDS ORDERED: POTASSIUM CHLORIDE 20MEQ TABLET SR PO ONE (13:00)
[2018-06-28] MEDS ORDERED: DILTIAZEM HCL 5MG/ML 5ML VIAL IV ONE (13:00)
[2018-06-28] MEDS ORDERED: GUAIFENESIN 200MG/10ML SUGAR FREE UDC PO PRN (14:00)
[2018-06-28] MEDS ORDERED: NA PHOS,M-B/NA PHOS,DI-BA ENEMA 118ML PR PRN (14:00)
[2018-06-28] MEDS ORDERED: CLONIDINE 0.1MG TABLET PO PRN (14:00)
[2018-06-28] MEDS ORDERED: IPRATROPIUM/ALBUTEROL 0.5-3(2.5)MG/3ML NEB INH PRN (14:00)
[2018-06-28] MEDS ORDERED: ONDANSETRON HCL 4MG/2ML INJ IV PRN (14:00)
[2018-06-28] MEDS ORDERED: ACETAMINOPHEN 325MG TABLET PO PRN (14:00)
[2018-06-28] MEDS ORDERED: ZOLPIDEM TARTRATE 5MG TABLET PO PRN (14:00)
[2018-06-28] MEDS ORDERED: NITROGLYCERIN 0.4MG TABLET SL SL PRN (14:00)
[2018-06-28] MEDS ORDERED: DOCUSATE SODIUM 100MG CAPSULE PO PRN (14:00)
[2018-06-28 16:10] VITALS: BP 104/60
[2018-06-28 16:21] VITALS: BP 104/60
[2018-06-28] MEDS: FAMOTIDINE 20MG TABLET PO SCH (17:39)
[2018-06-28] MEDS: RIVAROXABAN 15 MG TABLET PO SCH (17:39)
[2018-06-28] MEDS: DILTIAZEM HCL 60MG TABLET PO SCH (17:41)
[2018-06-28] MEDS: TRAMADOL 50MG TABLET PO PRN (17:41)
[2018-06-28 18:00] VITALS: BP 115/64
[2018-06-28 20:00] VITALS: BP 92/70
[2018-06-28 20:06] LABS: CREATINE KINASE 329 IU/L (26-192)
[2018-06-28 20:07] LABS: CREATINE KINASE MB FRACTION 5.1 ng/mL (0.5-3.6)
[2018-06-28] MEDS: SPIRONOLACTONE 25MG TABLET PO SCH (21:00)
[2018-06-28 22:00] VITALS: BP 89/31
[2018-06-29] VITALS (13 sets, daily range): BP systolic 74–138; BP diastolic 29–71
[2018-06-29 02:08] LABS: CLARITY URINE CLEAR (CLEAR); COLOR URINE YELLOW (YELLOW); KETONES URINE NEGATIVE (NEGATIVE); LEUKOCYTE ESTERASE URINE 1+ (NEGATIVE); NITRITE URINE NEGATIVE (NEGATIVE); OCCULT BLOOD URINE NEGATIVE (NEGATIVE); PH URINE 6.5 (4.5-8.0); PROTEIN URINE NEGATIVE (NEGATIVE); SPECIFIC GRAVITY URINE 1.013 (1.005-1.030); UROBILINOGEN URINE 0.2 E.U./dL (0.2-1.0)
[2018-06-29 02:49] LABS: *BARBITURATES SCREEN URINE NEGATIVE (NEGATIVE); *BENZODIAZEPINES SCREEN URINE NEGATIVE (NEGATIVE)
[2018-06-29 02:50] LABS: *AMPHETAMINES SCREEN URINE NEGATIVE (NEGATIVE); *COCAINE SCREEN URINE NEGATIVE (NEGATIVE); METHADONE URINE SCREEN NEGATIVE (NEGATIVE); OPIATES URINE SCREEN PRESUMTIVE POSITIVE (NEGATIVE); PHENCYCLIDINE URINE SCREEN NEGATIVE (NEGATIVE)
[2018-06-29 02:51] LABS: CANNABINOID URINE SCREEN NEGATIVE (NEGATIVE)
[2018-06-29 05:44] LABS: BASOPHILS % 0.6 % (0.0-2.0); CHLORIDE 96 mEq/L (98-107); EOSINOPHILS % 1.8 % (0.0-5.0); HEMATOCRIT. 32.2 % (36.0-48.0); HEMOGLOBIN. 10.8 g/dL (12.0-16.0); LYMPHOCYTES % 32.7 % (20.0-50.0); MEAN CORPUSCULAR HEMOGLOBIN 32.5 pg (28.0-32.0); MEAN CORPUSCULAR VOLUME 96.9 fL (81.0-99.0); MEAN PLATELET VOLUME 8.1 fl (7.4-10.4); MONOCYTES % 11.7 % (2.0-8.0); NEUTROPHILS % 53.2 % (40.0-76.0); PLATELET 195 x1000/uL (130-400); RED BLOOD CELL COUNT 3.32 mill/uL (4.2-5.4); RED CELL DISTRIBUTION WIDTH 14.2 % (11.6-14.6)
[2018-06-29 05:57] LABS: CREATINE KINASE 207 IU/L (26-192)
[2018-06-29] MEDS: DILTIAZEM HCL 60MG TABLET PO SCH ×2 (06:00)
[2018-06-29 06:12] LABS: CREATINE KINASE MB FRACTION 2.3 ng/mL (0.5-3.6)
[2018-06-29] MEDS: SPIRONOLACTONE 25MG TABLET PO SCH ×2 (08:30→21:00)
[2018-06-29] MEDS: ASPIRIN 325MG EC TABLET PO SCH (08:30)
[2018-06-29] MEDS: FAMOTIDINE 20MG TABLET PO SCH (08:30)
[2018-06-29] MEDS: MAGNESIUM/ALUMINUM HYDROXIDE/SIMETHICONE 30ML UDC PO PRN (09:02)
[2018-06-29] MEDS: LORAZEPAM 0.5MG TABLET PO PRN (09:59)
[2018-06-29] MEDS: RIVAROXABAN 15 MG TABLET PO SCH (17:58)
[2018-06-29] MEDS: DILTIAZEM HCL 120MG CAPSULE CD 24HR PO SCH (17:59)
[2018-06-30] VITALS (8 sets, daily range): BP systolic 85–122; BP diastolic 55–77
[2018-06-30] MEDS: TRAMADOL 50MG TABLET PO PRN (00:25)
[2018-06-30] MEDS: SPIRONOLACTONE 25MG TABLET PO SCH (09:00)
[2018-06-30] MEDS: DILTIAZEM HCL 120MG CAPSULE CD 24HR PO SCH (09:08)
[2018-06-30] MEDS: FAMOTIDINE 20MG TABLET PO SCH (09:08)
[2018-06-30] MEDS: ASPIRIN 325MG EC TABLET PO SCH (09:08)
[2018-06-30] MEDS: LORAZEPAM 0.5MG TABLET PO PRN (09:09)
[2018-06-30] MEDS: MAGNESIUM/ALUMINUM HYDROXIDE/SIMETHICONE 30ML UDC PO PRN (09:09)
== END 2018-06-30 14:21 | disposition home or self-care (01) | DRG 308 ==
LOC: ER 11:38 → 3WST 14:01 → EDBEDREQSVC 14:03 → EDBEDREQ 14:03 → EDBEDREQTM 14:03 → ENRESERV 14:16
PROVIDERS: ADMIT Internal Medicine; ATTEND Internal Medicine
DX: I48.91 Unspecified atrial fibrillation (principal); I50.43 Acute on chronic combined systolic (congestive) and diastolic (congestive) heart failure; I11.0 Hypertensive heart disease with heart failure; R06.03 Acute respiratory distress; D64.9 Anemia, unspecified; Z79.899 Other long term (current) drug therapy; F99 Mental disorder, not otherwise specified; E87.6 Hypokalemia; J44.9 Chronic obstructive pulmonary disease, unspecified; Z91.19 Patient's noncompliance with other medical treatment and regimen; Z88.0 Allergy status to penicillin
CPT/HCPCS: 36415; 71045; 80305; 82550; 82553; 83880; 84484; 93005; 96372; 96374; 99291; G0482; J1630; J3490

== ENCOUNTER 2018-07-19 12:50 | Emergency (ER) | payer MEDICARE, MEDICAID ==
[~2018-07-19] VITALS: Ht 167.6 cm; Wt 67.0 kg
[2018-07-19] MEDS ORDERED: ACETAMINOPHEN 325MG TABLET PO ONE (13:30)
[2018-07-19 15:55] LABS: BASOPHILS % 0.3 % (0.0-2.0); CHLORIDE 108 mEq/L (98-107); EOSINOPHILS % 1.7 % (0.0-5.0); HEMATOCRIT. 25.7 % (36.0-48.0); HEMOGLOBIN. 8.4 g/dL (12.0-16.0); LYMPHOCYTES % 27.2 % (20.0-50.0); MEAN CORPUSCULAR HEMOGLOBIN 32.6 pg (28.0-32.0); MEAN CORPUSCULAR VOLUME 99.5 fL (81.0-99.0); MEAN PLATELET VOLUME 7.2 fl (7.4-10.4); MONOCYTES % 11.6 % (2.0-8.0); NEUTROPHILS % 59.2 % (40.0-76.0); PLATELET 253 x1000/uL (130-400); RED BLOOD CELL COUNT 2.59 mill/uL (4.2-5.4); RED CELL DISTRIBUTION WIDTH 15.4 % (11.6-14.6)
[2018-07-19 15:57] LABS: INR 1.6; PARTIAL THROMBOPLASTIN TIME 37.8 sec (23.4-31.0); PROTHROMBIN TIME 16.1 sec (9.1-11.1)
[2018-07-19] MEDS ORDERED: IBUPROFEN 400MG TABLET PO ONE (16:00)
[2018-07-19 17:40] VITALS: BP 117/58
== END 2018-07-19 18:27 | disposition home or self-care (01) ==
LOC: ER 16:37
DX: R60.9 Edema, unspecified (principal); I48.91 Unspecified atrial fibrillation; J44.9 Chronic obstructive pulmonary disease, unspecified; I10 Essential (primary) hypertension; Z88.0 Allergy status to penicillin; Z79.82 Long term (current) use of aspirin
CPT/HCPCS: 36415; 71045; 93005; 93970; 99284

== ENCOUNTER 2018-09-22 11:50 | Emergency (ER) | payer MEDICARE, MEDICAID ==
[~2018-09-22] VITALS: Ht 165.1 cm; Wt 59.0 kg
[2018-09-22] MEDS ORDERED: HYDROCODONE/ACETAMINOPHEN 5/325MG TABLET PO ONE (17:15)
[2018-09-22 18:41] VITALS: BP 145/76
== END 2018-09-22 18:45 | disposition home or self-care (01) ==
LOC: ER 12:07
DX: R13.10 Dysphagia, unspecified (principal); M25.551 Pain in right hip; G89.29 Other chronic pain; I10 Essential (primary) hypertension; J44.9 Chronic obstructive pulmonary disease, unspecified; I48.91 Unspecified atrial fibrillation; Z88.0 Allergy status to penicillin; Z79.01 Long term (current) use of anticoagulants; Z98.890 Other specified postprocedural states
CPT/HCPCS: 71046; 99283

== ENCOUNTER 2018-12-05 20:08 | Emergency (ER) | payer MEDICARE, MEDICAID ==
[~2018-12-05] VITALS: Ht 160 cm; Wt 59.0 kg
[2018-12-05] MEDS ORDERED: MORPHINE SULFATE 2 MG/ML CPJ (NOT FOR IM USE) IV ONE (21:15)
[2018-12-05 21:36] LABS: BASOPHILS % 0.6 % (0.0-2.0); EOSINOPHILS % 0.9 % (0.0-5.0); HEMATOCRIT. 27.8 % (36.0-48.0); HEMOGLOBIN. 9.1 g/dL (12.0-16.0); LYMPHOCYTES % 29.4 % (20.0-50.0); MEAN CORPUSCULAR HEMOGLOBIN 31.6 pg (28.0-32.0); MEAN CORPUSCULAR VOLUME 96.5 fL (81.0-99.0); MEAN PLATELET VOLUME 7.7 fl (7.4-10.4); MONOCYTES % 12.3 % (2.0-8.0); NEUTROPHILS % 56.8 % (40.0-76.0); PLATELET 205 x1000/uL (130-400); RED BLOOD CELL COUNT 2.89 mill/uL (4.2-5.4); RED CELL DISTRIBUTION WIDTH 15.8 % (11.6-14.6)
[2018-12-05 21:42] LABS: CHLORIDE 108 mEq/L (98-107)
[2018-12-05 21:44] LABS: INR 1.2; PARTIAL THROMBOPLASTIN TIME 23.5 sec (23.4-31.0)
[2018-12-05] MEDS ORDERED: DIATR MEGLU/DIATRIZOATE SOLN 30ML ONE (22:15)
[2018-12-05 23:33] LABS: CLARITY URINE CLEAR (CLEAR); COLOR URINE YELLOW (YELLOW); KETONES URINE NEGATIVE (NEGATIVE); LEUKOCYTE ESTERASE URINE 2+ (NEGATIVE); NITRITE URINE NEGATIVE (NEGATIVE); OCCULT BLOOD URINE NEGATIVE (NEGATIVE); PH URINE 6.5 (4.5-8.0); PROTEIN URINE NEGATIVE (NEGATIVE)
[2018-12-06] MEDS ORDERED: DOXYCYCLINE HYCLATE 100MG CAPSULE PO ONE (01:45)
[2018-12-06 02:53] VITALS: BP 101/53
[2018-12-06] MEDS ORDERED: IOHEXOL-300 100 ML BOTTLE ONE (04:12)
== END 2018-12-06 03:12 | disposition home or self-care (01) ==
LOC: ER 20:08
DX: K57.90 Diverticulosis of intestine, part unspecified, without perforation or abscess without bleeding (principal); I48.91 Unspecified atrial fibrillation; J44.9 Chronic obstructive pulmonary disease, unspecified; I10 Essential (primary) hypertension; Z88.0 Allergy status to penicillin; Z79.82 Long term (current) use of aspirin; Z79.899 Other long term (current) drug therapy
CPT/HCPCS: 36415; 71045; 74176; 80053; 81003; 82962; 83605; 83690; 85025; 85610; 85730; 87086; 93005; 96374; 99284; J2270; Q9963; Q9967

== ENCOUNTER 2018-12-07 09:18 | Emergency (ER) | payer MEDICARE, MEDICAID ==
[~2018-12-07] VITALS: Ht 162.6 cm; Wt 61.0 kg
[2018-12-07] MEDS ORDERED: KETOROLAC 60MG/2ML VIAL IM STA (11:12)
[2018-12-07] MEDS ORDERED: HYDROCODONE/ACETAMINOPHEN 5/325MG TABLET PO STA (11:12)
[2018-12-07 12:14] LABS: BASOPHILS % 0.5 % (0.0-2.0); EOSINOPHILS % 0.8 % (0.0-5.0); HEMATOCRIT. 25.3 % (36.0-48.0); HEMOGLOBIN. 8.3 g/dL (12.0-16.0); LYMPHOCYTES % 33.1 % (20.0-50.0); MEAN CORPUSCULAR HEMOGLOBIN 31.6 pg (28.0-32.0); MEAN CORPUSCULAR VOLUME 96.5 fL (81.0-99.0); MEAN PLATELET VOLUME 7.8 fl (7.4-10.4); MONOCYTES % 10.8 % (2.0-8.0); NEUTROPHILS % 54.8 % (40.0-76.0); PLATELET 181 x1000/uL (130-400); RED BLOOD CELL COUNT 2.62 mill/uL (4.2-5.4); RED CELL DISTRIBUTION WIDTH 15.7 % (11.6-14.6)
[2018-12-07 12:20] LABS: CHLORIDE 111 mEq/L (98-107)
[2018-12-07 12:21] LABS: INR 1.2; PROTHROMBIN TIME 12.4 sec (9.6-11.0)
[2018-12-07] MEDS ORDERED: GABAPENTIN 300MG CAPSULE PO ONE (14:15)
[2018-12-07 15:31] VITALS: BP 110/78
== END 2018-12-07 15:50 | disposition home or self-care (01) ==
LOC: ER 09:18
DX: M25.552 Pain in left hip (principal); M25.551 Pain in right hip; G62.9 Polyneuropathy, unspecified; I48.91 Unspecified atrial fibrillation; J44.9 Chronic obstructive pulmonary disease, unspecified; I10 Essential (primary) hypertension; Z79.82 Long term (current) use of aspirin; Z79.899 Other long term (current) drug therapy; Z88.0 Allergy status to penicillin
CPT/HCPCS: 36415; 72100; 80053; 85025; 85610; 96372; 99284; J1885

== ENCOUNTER 2019-02-06 08:58 | Emergency (ER) | payer BC, MEDICAID ==
[~2019-02-06] VITALS: Ht 157.5 cm; Wt 50.0 kg
[~2019-02-06 08:58] MED LIST changes: -ASPI-1159 PO; +ASPI-1393 PO
[2019-02-06] MEDS ORDERED: KETOROLAC 15MG/ML VIAL IV ONE (09:15)
[2019-02-06 09:42] LABS: BASOPHILS % 0.8 % (0.0-2.0); EOSINOPHILS % 1.8 % (0.0-5.0); HEMOGLOBIN. 9.8 g/dL (12.0-16.0); LYMPHOCYTES % 28.5 % (20.0-50.0); MEAN CORPUSCULAR VOLUME 97.8 fL (81.0-99.0); MEAN PLATELET VOLUME 8.2 fl (7.4-10.4); MONOCYTES % 8.8 % (2.0-8.0); NEUTROPHILS % 60.1 % (40.0-76.0); PLATELET 205 x1000/uL (130-400); RED BLOOD CELL COUNT 2.97 mill/uL (4.2-5.4); RED CELL DISTRIBUTION WIDTH 13.4 % (11.6-14.6)
[2019-02-06 09:48] LABS: CLARITY URINE CLEAR (CLEAR); COLOR URINE YELLOW (YELLOW); KETONES URINE NEGATIVE (NEGATIVE); LEUKOCYTE ESTERASE URINE NEGATIVE (NEGATIVE); NITRITE URINE NEGATIVE (NEGATIVE); OCCULT BLOOD URINE NEGATIVE (NEGATIVE); PH URINE 8.5 (4.5-8.0); PROTEIN URINE NEGATIVE (NEGATIVE); SPECIFIC GRAVITY URINE 1.005 (1.005-1.030); UROBILINOGEN URINE 0.2 E.U./dL (0.2-1.0)
[2019-02-06 09:50] LABS: INR 1.1; PROTHROMBIN TIME 11.2 sec (9.6-11.0)
[2019-02-06 09:54] LABS: CHLORIDE 100 mEq/L (98-107)
[2019-02-06 11:19] VITALS: BP 120/75
== END 2019-02-06 11:20 | disposition home or self-care (01) ==
LOC: ER 08:58
DX: S32.049A Unspecified fracture of fourth lumbar vertebra, initial encounter for closed fracture (principal); R10.9 Unspecified abdominal pain; I48.91 Unspecified atrial fibrillation; I10 Essential (primary) hypertension; J44.9 Chronic obstructive pulmonary disease, unspecified; Z88.0 Allergy status to penicillin; X58.XXXA Exposure to other specified factors, initial encounter; Y93.89 Activity, other specified; Y92.89 Other specified places as the place of occurrence of the external cause; Y99.8 Other external cause status
CPT/HCPCS: 36415; 74176; 80053; 81003; 83690; 85025; 85610; 96374; 99284; J1885

== ENCOUNTER 2019-03-23 03:39 | Emergency (ER) | payer BC, MEDICAID ==
[~2019-03-23] VITALS: Ht 154.9 cm; Wt 59.0 kg
[2019-03-23] MEDS ORDERED: ACETAMINOPHEN 325MG TABLET PO ONE (04:30)
[2019-03-23 06:07] LABS: BASOPHILS % 0.8 % (0.0-2.0); EOSINOPHILS % 2.1 % (0.0-5.0); HEMATOCRIT. 23.9 % (36.0-48.0); HEMOGLOBIN. 7.7 g/dL (12.0-16.0); LYMPHOCYTES % 23.4 % (20.0-50.0); MEAN CORPUSCULAR HEMOGLOBIN 31.9 pg (28.0-32.0); MEAN CORPUSCULAR VOLUME 98.5 fL (81.0-99.0); MEAN PLATELET VOLUME 7.6 fl (7.4-10.4); MONOCYTES % 8.1 % (2.0-8.0); NEUTROPHILS % 65.6 % (40.0-76.0); PLATELET 267 x1000/uL (130-400); RED BLOOD CELL COUNT 2.43 mill/uL (4.2-5.4); RED CELL DISTRIBUTION WIDTH 14.7 % (11.6-14.6)
[2019-03-23 06:10] LABS: CHLORIDE 104 mEq/L (98-107)
[2019-03-23] MEDS ORDERED: LORAZEPAM 1MG TABLET ONE (08:46)
[2019-03-23 09:20] VITALS: BP 84/52
== END 2019-03-23 09:26 | disposition home or self-care (01) ==
LOC: ER 03:39
DX: I48.91 Unspecified atrial fibrillation (principal); D64.9 Anemia, unspecified; I11.0 Hypertensive heart disease with heart failure; I50.9 Heart failure, unspecified; J44.9 Chronic obstructive pulmonary disease, unspecified; M19.90 Unspecified osteoarthritis, unspecified site; F99 Mental disorder, not otherwise specified; Z88.0 Allergy status to penicillin; Z79.01 Long term (current) use of anticoagulants; Z79.82 Long term (current) use of aspirin
CPT/HCPCS: 36415; 71045; 84484; 93005; 99284

== ENCOUNTER 2019-04-02 15:00 | Inpatient (IN) | payer MEDICARE, MEDICAID ==
[~2019-04-02] VITALS: Ht 162.6 cm; Wt 58.5 kg
[2019-04-02] MEDS ORDERED: ACETAMINOPHEN 650MG SUPP PR STA (15:31)
[2019-04-02] MEDS ORDERED: SODIUM CHLORIDE 0.9% 1000ML BAG (SEPSIS BOLUS) IV ONE (15:45)
[2019-04-02 15:59] LABS: HEMATOCRIT. 33.3 % (36.0-48.0); HEMOGLOBIN. 11.1 g/dL (12.0-16.0); MEAN CORPUSCULAR HEMOGLOBIN 32.3 pg (28.0-32.0); MEAN CORPUSCULAR VOLUME 96.8 fL (81.0-99.0); MEAN PLATELET VOLUME 8.1 fl (7.4-10.4); PLATELET 307 x1000/uL (130-400); RED BLOOD CELL COUNT 3.44 mill/uL (4.2-5.4); RED CELL DISTRIBUTION WIDTH 14.4 % (11.6-14.6)
[2019-04-02 16:02] LABS: CHLORIDE 103 mEq/L (98-107)
[2019-04-02] MEDS ORDERED: LEVOFLOXACIN 750MG PREMIX 150 ML IV ONE (16:30)
[2019-04-02] MEDS ORDERED: VANCOMYCIN 1 G PREMIX 200 ML IV ONE (16:30)
[2019-04-02 16:57] LABS: PLATELET ESTIMATE NORMAL
[2019-04-02 19:23] LABS: CLARITY URINE TURBID (CLEAR); COLOR URINE DARK YELLOW (YELLOW); KETONES URINE NEGATIVE (NEGATIVE); LEUKOCYTE ESTERASE URINE 3+ (NEGATIVE); NITRITE URINE NEGATIVE (NEGATIVE); OCCULT BLOOD URINE 1+ (NEGATIVE); PROTEIN URINE 1+ (NEGATIVE); SPECIFIC GRAVITY URINE 1.019 (1.005-1.030)
[2019-04-02] MEDS ORDERED: DILTIAZEM HCL 5MG/ML 5ML VIAL IV ONE ×2 (19:45→20:45)
[2019-04-02] MEDS ORDERED: DILTIAZEM HCL 120MG CAPSULE CD 24HR PO ONE (19:45)
[2019-04-02] MEDS ORDERED: LOPERAMIDE HCL 2MG CAPSULE PO ONE (21:00)
[2019-04-02] MEDS ORDERED: IPRATROPIUM/ALBUTEROL 0.5-3(2.5)MG/3ML NEB HHN PRN (21:30)
[2019-04-02] MEDS ORDERED: LEVOFLOXACIN 500MG PREMIX 100 ML IV ONE (21:30)
[2019-04-02] MEDS ORDERED: CLONIDINE 0.1MG TABLET PO PRN (21:30)
[2019-04-02 21:32] VITALS: BP 126/75
[2019-04-02 22:00] VITALS: BP_SYST 132; BP_SYST 137; BP_DIAS 78; BP_DIAS 80
[2019-04-02] MEDS: ENOXAPARIN 40MG/0.4ML SYR SUBCUT SCH (23:01)
[2019-04-02] MEDS: DILTIAZEM HCL 60MG TABLET PO SCH ×2 (23:02→23:50)
[2019-04-03] VITALS (11 sets, daily range): BP systolic 109–132; BP diastolic 59–90
[2019-04-03 00:18] LABS: CREATINE KINASE 23 IU/L (26-192)
[2019-04-03] MEDS: DILTIAZEM HCL 125 MG in DEXT 5% WATER 100 ML IV SCH ×2 (01:04→23:34)
[2019-04-03] MEDS: DILTIAZEM HCL 60MG TABLET PO SCH ×4 (05:22→22:21)
[2019-04-03 07:08] LABS: HEMATOCRIT. 30.5 % (36.0-48.0); HEMOGLOBIN. 10.1 g/dL (12.0-16.0); MEAN CORPUSCULAR HEMOGLOBIN 32.1 pg (28.0-32.0); MEAN CORPUSCULAR VOLUME 96.9 fL (81.0-99.0); MEAN PLATELET VOLUME 8.1 fl (7.4-10.4); PLATELET 265 x1000/uL (130-400); RED BLOOD CELL COUNT 3.14 mill/uL (4.2-5.4); RED CELL DISTRIBUTION WIDTH 14.5 % (11.6-14.6)
[2019-04-03] MEDS: ASPIRIN 81MG EC TABLET PO SCH (09:00)
[2019-04-03 10:23] LABS: CHLORIDE 105 mEq/L (98-107)
[2019-04-03 10:45] LABS: CREATINE KINASE 25 IU/L (26-192); HDL CHOLESTEROL 63 mg/dL (40-59); LDL CHOLESTEROL 80 mg/dL (5-100); T4 FREE 1.52 ng/dL (0.76-1.46)
[2019-04-03] MEDS ORDERED: POTASSIUM CHLORIDE INJ 40 MEQ in DEXT 5% WATER 250 ML IV NR (12:30)
[2019-04-03] MEDS ORDERED: BISACODYL 10MG SUPP PR NR (12:30)
[2019-04-03] MEDS ORDERED: MAGNESIUM CITRATE 300ML SOLUTION PO NR (13:30)
[2019-04-03 13:35] LABS: PLATELET ESTIMATE NORMAL
[2019-04-03] MEDS: LEVOFLOXACIN 250MG PREMIX 50 ML IV SCH (18:00)
[2019-04-03] MEDS ORDERED: LORAZEPAM 2MG/ML CPJ IV NR (22:00)
[2019-04-03] MEDS: ENOXAPARIN 40MG/0.4ML SYR SUBCUT SCH (22:15)
[2019-04-04] VITALS (12 sets, daily range): BP systolic 93–139; BP diastolic 41–84
[2019-04-04] MEDS: DILTIAZEM HCL 60MG TABLET PO SCH ×4 (05:21→23:53)
[2019-04-04 06:56] LABS: HEMATOCRIT 29.6 % (36.0-48.0); HEMOGLOBIN 9.8 g/dL (12.0-16.0); MEAN CORPUSCULAR HEMOGLOBIN 31.9 pg (28.0-32.0); MEAN CORPUSCULAR VOLUME 96.7 fL (81.0-99.0); PLATELET 282 x1000/uL (130-400); RED BLOOD CELL COUNT 3.06 mill/uL (4.2-5.4); RED CELL DISTRIBUTION WIDTH 14.1 % (11.6-14.6)
[2019-04-04 07:43] LABS: CHLORIDE 109 mEq/L (98-107)
[2019-04-04] MEDS ORDERED: POTASSIUM CHLORIDE 20MEQ/PACKET PO SCH (09:30)
[2019-04-04] MEDS: ASPIRIN 81MG EC TABLET PO SCH (09:30)
[2019-04-04] MEDS ORDERED: DILTIAZEM HCL 5MG/ML 5ML VIAL IV SCH (13:30)
[2019-04-04] MEDS: DEXT 5%/0.45% NACL 1000ML 1,000 ML IV SCH (13:58)
[2019-04-04] MEDS: DILTIAZEM HCL 125 MG in DEXT 5% WATER 100 ML IV SCH ×2 (13:59→22:02)
[2019-04-04 15:59] LABS: BG BASE EXCESS -4.3 mmol/L (-2.0-2.0); BG CARBOXYHEMOGLOBIN 0.3 % (0.5-1.5); BG HCO3 ACT 17.9 mmol/L (22.0-26.0); BG METHEMOGLOBIN 0.1 % (0.0-1.5); BG OXYHEMOGLOBIN 96.6 % (94.0-97.0); BG PCO2 24.7 mmHg (35.0-45.0); BG PH 7.478 (7.350-7.450); BG PO2 88.7 mmHg (75.0-100.0); BG SAMPLE SITE RIGHT BRACHIAL; BG TOTAL HEMOGLOBIN 10.8 g/dL (12.0-18.0); BG VENT MODE ROOM AIR
[2019-04-04] MEDS: LEVOFLOXACIN 250MG PREMIX 50 ML IV SCH (17:43)
[2019-04-04 20:02] LABS: INR 1.1; PROTHROMBIN TIME 11.5 sec (9.6-11.0)
[2019-04-04] MEDS: ENOXAPARIN 40MG/0.4ML SYR SUBCUT SCH (20:56)
[2019-04-05] VITALS (12 sets, daily range): BP systolic 91–134; BP diastolic 53–91
[2019-04-05] MEDS: HYDROCODONE/ACETAMINOPHEN 5/325MG TABLET PO PRN ×2 (00:04→11:06)
[2019-04-05] MEDS: DILTIAZEM HCL 60MG TABLET PO SCH ×3 (05:50→17:09)
[2019-04-05] MEDS: DEXT 5%/0.45% NACL 1000ML 1,000 ML IV SCH (05:53)
[2019-04-05 06:36] LABS: BASOPHILS % 0.3 % (0.0-2.0); EOSINOPHILS % 1.4 % (0.0-5.0); HEMATOCRIT. 29.3 % (36.0-48.0); HEMOGLOBIN. 9.8 g/dL (12.0-16.0); LYMPHOCYTES % 25.4 % (20.0-50.0); MEAN PLATELET VOLUME 8.5 fl (7.4-10.4); MONOCYTES % 11.4 % (2.0-8.0); NEUTROPHILS % 61.5 % (40.0-76.0); PLATELET 262 x1000/uL (130-400); RED BLOOD CELL COUNT 3.05 mill/uL (4.2-5.4)
[2019-04-05 07:56] LABS: CHLORIDE 106 mEq/L (98-107)
[2019-04-05] MEDS: ASPIRIN 81MG EC TABLET PO SCH (09:42)
[2019-04-05] MEDS: LEVOFLOXACIN 250MG PREMIX 50 ML IV SCH (17:08)
[2019-04-05] MEDS ORDERED: DIGOXIN 125MCG TABLET PO SCH (18:00)
[2019-04-05] MEDS: DIGOXIN 125MCG TABLET PO SCH (20:13)
[2019-04-06] VITALS (10 sets, daily range): BP systolic 100–135; BP diastolic 55–94
[2019-04-06] MEDS: DILTIAZEM HCL 60MG TABLET PO SCH ×3 (00:11→12:33)
[2019-04-06] MEDS: DEXT 5%/0.45% NACL 1000ML 1,000 ML IV SCH (04:51)
[2019-04-06 07:07] LABS: BASOPHILS % 0.3 % (0.0-2.0); EOSINOPHILS % 1.7 % (0.0-5.0); HEMATOCRIT. 28.7 % (36.0-48.0); HEMOGLOBIN. 9.8 g/dL (12.0-16.0); LYMPHOCYTES % 12.2 % (20.0-50.0); MEAN CORPUSCULAR HEMOGLOBIN 32.2 pg (28.0-32.0); MEAN CORPUSCULAR VOLUME 94.8 fL (81.0-99.0); MEAN PLATELET VOLUME 8.4 fl (7.4-10.4); MONOCYTES % 10.4 % (2.0-8.0); NEUTROPHILS % 75.4 % (40.0-76.0); PLATELET 289 x1000/uL (130-400); RED BLOOD CELL COUNT 3.03 mill/uL (4.2-5.4); RED CELL DISTRIBUTION WIDTH 13.8 % (11.6-14.6)
[2019-04-06 07:08] LABS: CHLORIDE 104 mEq/L (98-107)
[2019-04-06] MEDS ORDERED: DIGOXIN 500MCG/2ML AMP IV NR (13:00)
[2019-04-06] MEDS: HYDROCODONE/ACETAMINOPHEN 5/325MG TABLET PO PRN (17:03)
[2019-04-06] MEDS: DILTIAZEM HCL 90MG TABLET PO SCH (17:58)
[2019-04-06] MEDS: DIGOXIN 125MCG TABLET PO SCH (17:58)
[2019-04-06] MEDS: LEVOFLOXACIN 250MG PREMIX 50 ML IV SCH (17:58)
[2019-04-06] MEDS: ONDANSETRON HCL 4MG/2ML INJ IV PRN (21:04)
[2019-04-07] VITALS (8 sets, daily range): BP systolic 102–139; BP diastolic 55–74
[2019-04-07] MEDS: DILTIAZEM HCL 90MG TABLET PO SCH ×4 (01:37→17:32)
[2019-04-07] MEDS: HYDROCODONE/ACETAMINOPHEN 5/325MG TABLET PO PRN ×3 (01:38→21:03)
[2019-04-07] MEDS: DEXT 5%/0.45% NACL 1000ML 1,000 ML IV SCH ×2 (01:48→19:45)
[2019-04-07 06:40] LABS: CHLORIDE 103 mEq/L (98-107)
[2019-04-07 06:42] LABS: BASOPHILS % 0.5 % (0.0-2.0); EOSINOPHILS % 1.6 % (0.0-5.0); HEMATOCRIT. 29.9 % (36.0-48.0); LYMPHOCYTES % 19.7 % (20.0-50.0); MEAN CORPUSCULAR VOLUME 96.3 fL (81.0-99.0); MEAN PLATELET VOLUME 8.2 fl (7.4-10.4); MONOCYTES % 14.2 % (2.0-8.0); PLATELET 244 x1000/uL (130-400); RED BLOOD CELL COUNT 3.11 mill/uL (4.2-5.4)
[2019-04-07] MEDS: DIGOXIN 125MCG TABLET PO SCH (17:31)
[2019-04-07] MEDS: LEVOFLOXACIN 250MG PREMIX 50 ML IV SCH (17:33)
[2019-04-07] MEDS: ONDANSETRON HCL 4MG/2ML INJ IV PRN (21:16)
[2019-04-08] MEDS: DILTIAZEM HCL 90MG TABLET PO SCH ×4 (00:46→18:00)
[2019-04-08] MEDS: DEXT 5%/0.45% NACL 1000ML 1,000 ML IV SCH (00:48)
[2019-04-08] MEDS: ACETAMINOPHEN 325MG TABLET PO PRN ×2 (00:48→19:50)
[2019-04-08 04:00] VITALS: BP 135/97
[2019-04-08 08:00] VITALS: BP 102/58
[2019-04-08 12:00] VITALS: BP 125/72
[2019-04-08 13:37] VITALS: BP 102/58
[2019-04-08 16:00] VITALS: BP 114/69
[2019-04-08] MEDS: LEVOFLOXACIN 250MG PREMIX 50 ML IV SCH (18:00)
[2019-04-08 18:30] VITALS: BP 114/69
[2019-04-08] MEDS: DIGOXIN 125MCG TABLET PO SCH (19:50)
== END 2019-04-08 20:15 | disposition home or self-care (01) | DRG 871 ==
LOC: ER 15:00 → EDBEDREQTM 20:53 → EDBEDREQ 20:53 → ENRESERV 20:56 → 3WST 21:28 → 6WST 04-06 17:23
PROVIDERS: ADMIT Internal Medicine; ATTEND Internal Medicine
DX: A41.9 Sepsis, unspecified organism (principal); G93.41 Metabolic encephalopathy; I48.1 Persistent atrial fibrillation; I69.354 Hemiplegia and hemiparesis following cerebral infarction affecting left non-dominant side; I48.92 Unspecified atrial flutter; D68.59 Other primary thrombophilia; R64 Cachexia; K92.1 Melena; N39.0 Urinary tract infection, site not specified; E44.0 Moderate protein-calorie malnutrition; I07.1 Rheumatic tricuspid insufficiency; B96.20 Unspecified Escherichia coli [E. coli] as the cause of diseases classified elsewhere; E87.6 Hypokalemia; J44.9 Chronic obstructive pulmonary disease, unspecified; F03.90 Unspecified dementia, unspecified severity, without behavioral disturbance, psychotic disturbance, mood disturbance, and anxiety; D64.9 Anemia, unspecified; I27.20 Pulmonary hypertension, unspecified; R73.9 Hyperglycemia, unspecified; I11.9 Hypertensive heart disease without heart failure; K59.00 Constipation, unspecified; M19.90 Unspecified osteoarthritis, unspecified site; E78.5 Hyperlipidemia, unspecified; I49.3 Ventricular premature depolarization; Z74.01 Bed confinement status; Z79.82 Long term (current) use of aspirin; Z79.899 Other long term (current) drug therapy; Z91.81 History of falling; Z68.22 Body mass index [BMI] 22.0-22.9, adult; Z88.0 Allergy status to penicillin; Z88.8 Allergy status to other drugs, medicaments and biological substances
CPT/HCPCS: 36415; 36600; 71045; 74018; 80048; 80061; 81003; 82270; 82375; 82550; 82805; 83605; 83735; 84439; 84443; 84484; 85027; 87077; 87186; 92610; 93005; 93970; 96365; 97161; 99291; A6261; J1160; J1650; J1956; J2060; J2405; J3370; J3480; J3490; J7030; J7040; J7060

== ENCOUNTER 2019-04-10 11:23 | Inpatient (IN) | payer MEDICARE, MEDICAID ==
[~2019-04-10] VITALS: Ht 172.7 cm; Wt 60.8 kg
[~2019-04-10 11:23] MED LIST changes: -IBUP-2030 PO; -NAPR-677 PO; -NEBI10TA2 PO; -VERA240C2 PO
[2019-04-10] MEDS ORDERED: HYDROCODONE/ACETAMINOPHEN 5/325MG TABLET PO STA (12:09)
[2019-04-10 14:09] LABS: BASOPHILS % 1.1 % (0.0-2.0); EOSINOPHILS % 0.6 % (0.0-5.0); HEMATOCRIT. 29.6 % (36.0-48.0); HEMOGLOBIN. 9.9 g/dL (12.0-16.0); LYMPHOCYTES % 27.6 % (20.0-50.0); MEAN CORPUSCULAR VOLUME 96.1 fL (81.0-99.0); MEAN PLATELET VOLUME 7.5 fl (7.4-10.4); MONOCYTES % 12.2 % (2.0-8.0); NEUTROPHILS % 58.5 % (40.0-76.0); PLATELET 286 x1000/uL (130-400); RED BLOOD CELL COUNT 3.09 mill/uL (4.2-5.4)
[2019-04-10 14:12] LABS: CHLORIDE 104 mEq/L (98-107)
[2019-04-10 14:24] LABS: INR 1.1; PROTHROMBIN TIME 10.9 sec (9.6-11.0)
[2019-04-10 15:28] LABS: CLARITY URINE TURBID (CLEAR); COLOR URINE YELLOW (YELLOW); KETONES URINE TRACE (NEGATIVE); LEUKOCYTE ESTERASE URINE 1+ (NEGATIVE); NITRITE URINE NEGATIVE (NEGATIVE); OCCULT BLOOD URINE TRACE (NEGATIVE); PROTEIN URINE NEGATIVE (NEGATIVE); UROBILINOGEN URINE 0.2 E.U./dL (0.2-1.0)
[2019-04-10] MEDS ORDERED: HALOPERIDOL LACTATE 5MG/ML VIAL IM ONE (16:15)
[2019-04-10] MEDS ORDERED: NITROFURANTOIN 100MG M/M CAPSULE PO ONE (17:45)
[2019-04-11] VITALS (7 sets, daily range): BP systolic 95–139; BP diastolic 60–88
[2019-04-11] MEDS ORDERED: HALOPERIDOL LACTATE 5MG/ML VIAL IM SCH (00:30)
[2019-04-11] MEDS ORDERED: NON FORMULARY PATIENT HOME MED XX SCH (03:45)
[2019-04-11] MEDS: MORPHINE SULFATE 2 MG/ML CPJ (NOT FOR IM USE) IV PRN (05:47)
[2019-04-11] MEDS ORDERED: DILTIAZEM HCL 5MG/ML 5ML VIAL IV SCH (06:00)
[2019-04-11] MEDS ORDERED: DILTIAZEM HCL 5MG/ML 10ML VIAL IV SCH (06:00)
[2019-04-11] MEDS: PANTOPRAZOLE 40MG DR TABLET PO SCH (06:05)
[2019-04-11] MEDS: ARIPIPRAZOLE 5MG TABLET PO SCH (08:52)
[2019-04-11] MEDS: DOCUSATE SODIUM 100MG CAPSULE PO SCH (08:53)
[2019-04-11] MEDS: LOSARTAN POTASSIUM 100 MG TABLET PO SCH (08:53)
[2019-04-11] MEDS: ASPIRIN 81MG EC TABLET PO SCH (08:53)
[2019-04-11] MEDS: OXYCODONE HCL 10MG TABLET SR 12HR PO SCH (08:54)
[2019-04-11] MEDS: ENOXAPARIN 40MG/0.4ML SYR SUBCUT SCH (08:55)
[2019-04-11] MEDS ORDERED: CALCITRIOL 0.5MCG CAPSULE PO SCH (09:00)
[2019-04-11 09:40] LABS: BASOPHILS % 0.8 % (0.0-2.0); EOSINOPHILS % 0.8 % (0.0-5.0); HEMATOCRIT. 29.9 % (36.0-48.0); HEMOGLOBIN. 9.9 g/dL (12.0-16.0); LYMPHOCYTES % 27.4 % (20.0-50.0); MEAN CORPUSCULAR HEMOGLOBIN 31.9 pg (28.0-32.0); MEAN CORPUSCULAR VOLUME 96.5 fL (81.0-99.0); MEAN PLATELET VOLUME 7.4 fl (7.4-10.4); MONOCYTES % 12.9 % (2.0-8.0); NEUTROPHILS % 58.1 % (40.0-76.0); PLATELET 287 x1000/uL (130-400)
[2019-04-11 09:46] LABS: CHLORIDE 105 mEq/L (98-107)
[2019-04-11 09:55] LABS: T4 FREE 1.39 ng/dL (0.76-1.46)
[2019-04-11] MEDS ORDERED: LEVOFLOXACIN 500MG TABLET PO SCH (11:00)
[2019-04-11] MEDS: ATORVASTATIN CALCIUM 20MG TABLET PO SCH (20:52)
[2019-04-12] VITALS: BP 128/87
[2019-04-12 04:00] VITALS: BP 98/67
[2019-04-12] MEDS: PANTOPRAZOLE 40MG DR TABLET PO SCH (06:54)
[2019-04-12 08:00] VITALS: BP 119/68
[2019-04-12] MEDS: OXYCODONE HCL 10MG TABLET SR 12HR PO SCH (09:00)
[2019-04-12] MEDS: LOSARTAN POTASSIUM 100 MG TABLET PO SCH (09:00)
[2019-04-12] MEDS: DOCUSATE SODIUM 100MG CAPSULE PO SCH (09:18)
[2019-04-12] MEDS: ASPIRIN 81MG EC TABLET PO SCH (09:18)
[2019-04-12] MEDS: ENOXAPARIN 40MG/0.4ML SYR SUBCUT SCH (09:19)
[2019-04-12] MEDS: ARIPIPRAZOLE 5MG TABLET PO SCH (09:19)
[2019-04-12] MEDS: LEVOFLOXACIN 250MG TABLET PO SCH (11:32)
[2019-04-12] MEDS: CALCITRIOL 0.25MCG CAPSULE PO SCH (11:32)
[2019-04-12 12:00] VITALS: BP 96/62
[2019-04-12] MEDS: MORPHINE SULFATE 2 MG/ML CPJ (NOT FOR IM USE) IV PRN (14:13)
[2019-04-12 16:00] VITALS: BP 112/67
[2019-04-12 20:00] VITALS: BP 97/65
[2019-04-12] MEDS: FAMOTIDINE 20MG TABLET PO SCH (20:33)
[2019-04-12] MEDS: ATORVASTATIN CALCIUM 20MG TABLET PO SCH (20:33)
[2019-04-12] MEDS ORDERED: POTASSIUM CHLORIDE 20MEQ TABLET SR PO SCH (21:15)
[2019-04-12] MEDS ORDERED: HYDROCODONE/APAP 7.5/325MG 1 TAB TABLET PO PRN (21:30)
[2019-04-13] VITALS: BP 90/61
[2019-04-13] MEDS: LORAZEPAM 0.5MG TABLET PO PRN (01:00)
[2019-04-13 04:00] VITALS: BP 105/56
[2019-04-13 08:00] VITALS: BP 143/54
[2019-04-13] MEDS: OXYCODONE HCL 10MG TABLET SR 12HR PO SCH (09:00)
[2019-04-13] MEDS: LOSARTAN POTASSIUM 100 MG TABLET PO SCH (09:00)
[2019-04-13] MEDS: ASPIRIN 81MG EC TABLET PO SCH (10:07)
[2019-04-13] MEDS: CALCITRIOL 0.25MCG CAPSULE PO SCH (10:07)
[2019-04-13] MEDS: DOCUSATE SODIUM 100MG CAPSULE PO SCH (10:07)
[2019-04-13] MEDS: ENOXAPARIN 40MG/0.4ML SYR SUBCUT SCH (10:07)
[2019-04-13] MEDS: FAMOTIDINE 20MG TABLET PO SCH ×2 (10:08→21:42)
[2019-04-13] MEDS: ARIPIPRAZOLE 5MG TABLET PO SCH (10:08)
[2019-04-13] MEDS: LEVOFLOXACIN 250MG TABLET PO SCH (12:25)
[2019-04-13 13:00] VITALS: BP 106/58
[2019-04-13 13:03] LABS: BG BASE EXCESS -2.7 mmol/L (-2.0-2.0); BG CARBOXYHEMOGLOBIN 0.3 % (0.5-1.5); BG DEOXYHEMOGLOBIN 2.7 % (0.0-5.0); BG FRACTION INSPIRED OXYGEN 21; BG HCO3 ACT 21.2 mmol/L (22.0-26.0); BG METHEMOGLOBIN 0.3 % (0.0-1.5); BG OXYGEN SATURATION 97.3 % (92.0-98.5); BG OXYHEMOGLOBIN 96.7 % (94.0-97.0); BG PCO2 32.9 mmHg (35.0-45.0); BG PH 7.426 (7.350-7.450); BG PO2 96.7 mmHg (75.0-100.0); BG SAMPLE SITE RIGHT BRACHIAL; BG TOTAL HEMOGLOBIN 9.5 g/dL (12.0-18.0); BG VENT MODE ROOM AIR
[2019-04-13 14:14] LABS: HEMATOCRIT 31.2 % (36.0-48.0); MEAN CORPUSCULAR HEMOGLOBIN 31.7 pg (28.0-32.0); PLATELET 222 x1000/uL (130-400); RED BLOOD CELL COUNT 3.15 mill/uL (4.2-5.4); RED CELL DISTRIBUTION WIDTH 14.4 % (11.6-14.6)
[2019-04-13 14:27] LABS: CHLORIDE 105 mEq/L (98-107)
[2019-04-13] MEDS ORDERED: ONDANSETRON HCL 4MG/2ML INJ IV PRN (15:30)
[2019-04-13] MEDS ORDERED: HYDRALAZINE 20MG/ML VIAL IV PRN (15:30)
[2019-04-13] MEDS ORDERED: CLONIDINE 0.1MG TABLET PO PRN (15:30)
[2019-04-13 16:00] VITALS: BP 102/60
[2019-04-13 20:00] VITALS: BP 98/57
[2019-04-13] MEDS: CARVEDILOL 3.125 MG TABLET PO SCH (21:00)
[2019-04-13] MEDS: ATORVASTATIN CALCIUM 20MG TABLET PO SCH (21:42)
[2019-04-14] VITALS: BP 112/63
[2019-04-14 04:00] VITALS: BP 118/82
[2019-04-14 05:46] LABS: HEMATOCRIT. 30.1 % (36.0-48.0); HEMOGLOBIN. 10.1 g/dL (12.0-16.0); MEAN CORPUSCULAR HEMOGLOBIN 31.8 pg (28.0-32.0); MEAN PLATELET VOLUME 7.4 fl (7.4-10.4); PLATELET 281 x1000/uL (130-400); RED BLOOD CELL COUNT 3.17 mill/uL (4.2-5.4); RED CELL DISTRIBUTION WIDTH 13.8 % (11.6-14.6)
[2019-04-14 06:03] LABS: CHLORIDE 104 mEq/L (98-107)
[2019-04-14] MEDS: CALCITRIOL 0.25MCG CAPSULE PO SCH (09:00)
[2019-04-14] MEDS: DOCUSATE SODIUM 100MG CAPSULE PO SCH (09:00)
[2019-04-14] MEDS: FAMOTIDINE 20MG TABLET PO SCH ×2 (11:04→20:42)
[2019-04-14] MEDS: ENOXAPARIN 40MG/0.4ML SYR SUBCUT SCH (11:04)
[2019-04-14] MEDS: ARIPIPRAZOLE 5MG TABLET PO SCH (11:05)
[2019-04-14] MEDS: ASPIRIN 81MG EC TABLET PO SCH (11:05)
[2019-04-14] MEDS: LEVOFLOXACIN 250MG TABLET PO SCH (11:06)
[2019-04-14] MEDS: LOSARTAN POTASSIUM 100 MG TABLET PO SCH (11:06)
[2019-04-14] MEDS: CARVEDILOL 3.125 MG TABLET PO SCH ×2 (11:08→20:42)
[2019-04-14 12:00] VITALS: BP 179/107
[2019-04-14 12:01] LABS: PLATELET ESTIMATE NORMAL
[2019-04-14 13:57] LABS: BG BASE EXCESS -3.2 mmol/L (-2.0-2.0); BG CARBOXYHEMOGLOBIN 0.1 % (0.5-1.5); BG DEOXYHEMOGLOBIN 1.8 % (0.0-5.0); BG FRACTION INSPIRED OXYGEN 21; BG HCO3 ACT 20.7 mmol/L (22.0-26.0); BG METHEMOGLOBIN 0.2 % (0.0-1.5); BG OXYGEN SATURATION 98.2 % (92.0-98.5); BG OXYHEMOGLOBIN 97.9 % (94.0-97.0); BG PCO2 32.8 mmHg (35.0-45.0); BG PH 7.418 (7.350-7.450); BG PO2 114.7 mmHg (75.0-100.0); BG SAMPLE SITE RIGHT BRACHIAL; BG VENT MODE ROOM AIR
[2019-04-14 16:00] VITALS: BP 105/62
[2019-04-14] MEDS: SODIUM CHLORIDE 0.45% 1,000 ML IV SCH (18:17)
[2019-04-14] MEDS: METOCLOPRAMIDE HCL 10MG/2ML VIAL IV SCH ×2 (18:17→23:35)
[2019-04-14] MEDS ORDERED: LEVOFLOXACIN 500MG PREMIX 100 ML IV SCH (18:30)
[2019-04-14 20:00] VITALS: BP 144/95
[2019-04-14] MEDS: LEVOFLOXACIN 500MG PREMIX 100 ML IV SCH (20:42)
[2019-04-14] MEDS: ATORVASTATIN CALCIUM 20MG TABLET PO SCH (20:42)
[2019-04-14] MEDS: METRONIDAZOLE 500 MG PREMIX 100 ML IV SCH (22:11)
[2019-04-14] MEDS ORDERED: POTASSIUM CHLORIDE INJ 40 MEQ in DEXT 5% WATER 250 ML IV SCH (23:00)
[2019-04-15] VITALS: BP 122/62
[2019-04-15 04:00] VITALS: BP 110/57
[2019-04-15] MEDS: METRONIDAZOLE 500 MG PREMIX 100 ML IV SCH ×3 (05:31→22:50)
[2019-04-15] MEDS: METOCLOPRAMIDE HCL 10MG/2ML VIAL IV SCH ×3 (05:32→18:44)
[2019-04-15 06:50] LABS: BASOPHILS % 1.1 % (0.0-2.0); EOSINOPHILS % 2.8 % (0.0-5.0); HEMOGLOBIN. 9.4 g/dL (12.0-16.0); LYMPHOCYTES % 28.7 % (20.0-50.0); MEAN CORPUSCULAR HEMOGLOBIN 31.6 pg (28.0-32.0); MEAN CORPUSCULAR VOLUME 94.4 fL (81.0-99.0); MEAN PLATELET VOLUME 7.4 fl (7.4-10.4); MONOCYTES % 12.5 % (2.0-8.0); NEUTROPHILS % 54.9 % (40.0-76.0); PLATELET 278 x1000/uL (130-400); RED BLOOD CELL COUNT 2.97 mill/uL (4.2-5.4); RED CELL DISTRIBUTION WIDTH 13.8 % (11.6-14.6)
[2019-04-15 06:55] LABS: CHLORIDE 104 mEq/L (98-107)
[2019-04-15] MEDS: ENOXAPARIN 40MG/0.4ML SYR SUBCUT SCH (07:51)
[2019-04-15] MEDS: CALCITRIOL 0.25MCG CAPSULE PO SCH (07:51)
[2019-04-15] MEDS: ARIPIPRAZOLE 5MG TABLET PO SCH (07:51)
[2019-04-15] MEDS: LOSARTAN POTASSIUM 100 MG TABLET PO SCH (07:51)
[2019-04-15] MEDS: DOCUSATE SODIUM 100MG CAPSULE PO SCH (07:51)
[2019-04-15] MEDS: CARVEDILOL 3.125 MG TABLET PO SCH ×2 (07:52→21:00)
[2019-04-15] MEDS: FAMOTIDINE 20MG TABLET PO SCH ×2 (07:52→21:32)
[2019-04-15] MEDS: ASPIRIN 81MG EC TABLET PO SCH (10:53)
[2019-04-15 12:00] VITALS: BP 140/66
[2019-04-15] MEDS: MORPHINE SULFATE 2 MG/ML CPJ (NOT FOR IM USE) IV PRN ×2 (12:06→21:36)
[2019-04-15] MEDS: DIPHENHYDRAMINE 50MG/ML VIAL IV PRN ×2 (12:08→18:44)
[2019-04-15] MEDS: HYDROCODONE/ACETAMINOPHEN 5/325MG TABLET PO PRN ×2 (14:59→18:44)
[2019-04-15] MEDS: LORAZEPAM 0.5MG TABLET PO PRN (14:59)
[2019-04-15] MEDS: SODIUM CHLORIDE 0.45% 1,000 ML IV SCH (15:28)
[2019-04-15 20:00] VITALS: BP 101/77
[2019-04-15] MEDS: LEVOFLOXACIN 500MG PREMIX 100 ML IV SCH (21:31)
[2019-04-15] MEDS: ATORVASTATIN CALCIUM 20MG TABLET PO SCH (21:32)
[2019-04-16] VITALS: BP 162/108
[2019-04-16] MEDS: METOCLOPRAMIDE HCL 10MG/2ML VIAL IV SCH ×3 (00:10→12:14)
[2019-04-16] MEDS: HYDROCODONE/ACETAMINOPHEN 5/325MG TABLET PO PRN ×3 (00:12→21:38)
[2019-04-16 04:00] VITALS: BP 107/71
[2019-04-16] MEDS: METRONIDAZOLE 500 MG PREMIX 100 ML IV SCH ×2 (06:23→13:26)
[2019-04-16 08:00] VITALS: BP 94/62
[2019-04-16] MEDS: CARVEDILOL 3.125 MG TABLET PO SCH ×2 (09:00→21:00)
[2019-04-16] MEDS: LOSARTAN POTASSIUM 100 MG TABLET PO SCH (09:00)
[2019-04-16] MEDS: ARIPIPRAZOLE 5MG TABLET PO SCH (09:14)
[2019-04-16] MEDS: CALCITRIOL 0.25MCG CAPSULE PO SCH (09:15)
[2019-04-16] MEDS: ASPIRIN 81MG EC TABLET PO SCH (09:15)
[2019-04-16] MEDS: ENOXAPARIN 40MG/0.4ML SYR SUBCUT SCH (09:15)
[2019-04-16] MEDS: DOCUSATE SODIUM 100MG CAPSULE PO SCH (09:15)
[2019-04-16] MEDS: FAMOTIDINE 20MG TABLET PO SCH ×2 (09:15→21:38)
[2019-04-16 12:00] VITALS: BP 92/67
[2019-04-16 16:00] VITALS: BP 93/64
[2019-04-16 20:00] VITALS: BP 138/69
[2019-04-16] MEDS: ATORVASTATIN CALCIUM 20MG TABLET PO SCH (21:38)
[2019-04-17] VITALS: BP 130/74
[2019-04-17] MEDS: HYDROCODONE/ACETAMINOPHEN 5/325MG TABLET PO PRN ×2 (01:49→23:28)
[2019-04-17] MEDS: LORAZEPAM 0.5MG TABLET PO PRN (03:14)
[2019-04-17 04:00] VITALS: BP 132/70
[2019-04-17 08:00] VITALS: BP 108/65
[2019-04-17] MEDS: CALCITRIOL 0.25MCG CAPSULE PO SCH (09:00)
[2019-04-17] MEDS: CARVEDILOL 3.125 MG TABLET PO SCH ×2 (09:00→21:00)
[2019-04-17] MEDS: DOCUSATE SODIUM 100MG CAPSULE PO SCH (09:20)
[2019-04-17] MEDS: ENOXAPARIN 40MG/0.4ML SYR SUBCUT SCH (09:20)
[2019-04-17] MEDS: LEVOFLOXACIN 250MG TABLET PO SCH (09:21)
[2019-04-17] MEDS: FAMOTIDINE 20MG TABLET PO SCH ×2 (09:21→21:37)
[2019-04-17] MEDS: ASPIRIN 81MG EC TABLET PO SCH (09:21)
[2019-04-17] MEDS: ARIPIPRAZOLE 5MG TABLET PO SCH (09:21)
[2019-04-17] MEDS: LOSARTAN POTASSIUM 100 MG TABLET PO SCH (09:28)
[2019-04-17 12:00] VITALS: BP 96/68
[2019-04-17 16:00] VITALS: BP 97/58
[2019-04-17 20:00] VITALS: BP 102/73
[2019-04-17] MEDS: ATORVASTATIN CALCIUM 20MG TABLET PO SCH (21:37)
[2019-04-18] VITALS: BP 115/73
[2019-04-18] MEDS ORDERED: LORAZEPAM 0.5MG TABLET PO PRN (03:00)
[2019-04-18 04:00] VITALS: BP 107/63
[2019-04-18 08:00] VITALS: BP 127/77
[2019-04-18] MEDS: FAMOTIDINE 20MG TABLET PO SCH ×2 (10:00→22:21)
[2019-04-18] MEDS: ARIPIPRAZOLE 5MG TABLET PO SCH (10:00)
[2019-04-18] MEDS: CALCITRIOL 0.25MCG CAPSULE PO SCH (10:00)
[2019-04-18] MEDS: LEVOFLOXACIN 250MG TABLET PO SCH (10:01)
[2019-04-18] MEDS: LOSARTAN POTASSIUM 100 MG TABLET PO SCH (10:01)
[2019-04-18] MEDS: ASPIRIN 81MG TABLET PO SCH (10:01)
[2019-04-18] MEDS: DOCUSATE SODIUM SUGAR FREE 100MG/10ML UDC PO SCH (10:01)
[2019-04-18] MEDS: ENOXAPARIN 40MG/0.4ML SYR SUBCUT SCH (10:02)
[2019-04-18] MEDS: CARVEDILOL 3.125 MG TABLET PO SCH ×2 (10:02→22:21)
[2019-04-18 12:00] VITALS: BP 107/66
[2019-04-18 16:00] VITALS: BP 103/69
[2019-04-18 20:00] VITALS: BP 100/61
[2019-04-18] MEDS: ATORVASTATIN CALCIUM 20MG TABLET PO SCH (22:21)
[2019-04-19] VITALS: BP 131/99
[2019-04-19] MEDS: HYDROCODONE/ACETAMINOPHEN 5/325MG TABLET PO PRN ×3 (01:52→20:16)
[2019-04-19 04:00] VITALS: BP 131/99
[2019-04-19 06:59] LABS: HEMATOCRIT 28.7 % (36.0-48.0); HEMOGLOBIN 9.7 g/dL (12.0-16.0); MEAN CORPUSCULAR HEMOGLOBIN 31.8 pg (28.0-32.0); MEAN CORPUSCULAR VOLUME 93.8 fL (81.0-99.0); PLATELET 287 x1000/uL (130-400); RED BLOOD CELL COUNT 3.06 mill/uL (4.2-5.4)
[2019-04-19 07:40] LABS: CHLORIDE 102 mEq/L (98-107)
[2019-04-19 08:00] VITALS: BP 103/66
[2019-04-19] MEDS: ASPIRIN 81MG TABLET PO SCH (08:29)
[2019-04-19] MEDS: LOSARTAN POTASSIUM 100 MG TABLET PO SCH (08:29)
[2019-04-19] MEDS: ENOXAPARIN 40MG/0.4ML SYR SUBCUT SCH (08:30)
[2019-04-19] MEDS: FAMOTIDINE 20MG TABLET PO SCH ×2 (08:30→20:20)
[2019-04-19] MEDS: CALCITRIOL 0.25MCG CAPSULE PO SCH (08:30)
[2019-04-19] MEDS: DOCUSATE SODIUM SUGAR FREE 100MG/10ML UDC PO SCH (08:30)
[2019-04-19] MEDS: CARVEDILOL 3.125 MG TABLET PO SCH ×2 (08:35→20:14)
[2019-04-19] MEDS: ARIPIPRAZOLE 5MG TABLET PO SCH (10:27)
[2019-04-19] MEDS: LEVOFLOXACIN 250MG TABLET PO SCH (10:30)
[2019-04-19 12:00] VITALS: BP 97/60
[2019-04-19 16:00] VITALS: BP 94/58
[2019-04-19 20:00] VITALS: BP 116/79
[2019-04-19] MEDS: ATORVASTATIN CALCIUM 20MG TABLET PO SCH (20:13)
[2019-04-19] MEDS: DIPHENHYDRAMINE 50MG/ML VIAL IV PRN (23:05)
[2019-04-19] MEDS ORDERED: POTASSIUM CHLORIDE 20MEQ TABLET SR PO NR (23:15)
[2019-04-20] VITALS: BP 113/79
[2019-04-20 04:00] VITALS: BP 115/80
[2019-04-20] MEDS: DIPHENHYDRAMINE 50MG/ML VIAL IV PRN ×2 (06:58→23:30)
[2019-04-20 08:00] VITALS: BP_SYST 104; BP_DIAS 62; BP_DIAS 63
[2019-04-20] MEDS: ARIPIPRAZOLE 5MG TABLET PO SCH (08:55)
[2019-04-20] MEDS: ASPIRIN 81MG TABLET PO SCH (08:55)
[2019-04-20] MEDS: DOCUSATE SODIUM SUGAR FREE 100MG/10ML UDC PO SCH (08:55)
[2019-04-20] MEDS: CALCITRIOL 0.25MCG CAPSULE PO SCH (08:55)
[2019-04-20] MEDS: FAMOTIDINE 20MG TABLET PO SCH ×2 (08:56→20:22)
[2019-04-20] MEDS: ENOXAPARIN 40MG/0.4ML SYR SUBCUT SCH (08:56)
[2019-04-20] MEDS: CARVEDILOL 3.125 MG TABLET PO SCH ×2 (09:00→20:23)
[2019-04-20] MEDS: LOSARTAN POTASSIUM 100 MG TABLET PO SCH (09:00)
[2019-04-20] MEDS: LEVOFLOXACIN 250MG TABLET PO SCH (11:32)
[2019-04-20 12:00] VITALS: BP_SYST 105; BP_SYST 116; BP_DIAS 67; BP_DIAS 68
[2019-04-20] MEDS ORDERED: HYDRALAZINE 10 MG in SODIUM CHLORIDE 0.9% 49.5 ML IV PRN (15:15)
[2019-04-20 16:00] VITALS: BP_SYST 118; BP_SYST 128; BP_DIAS 60; BP_DIAS 75
[2019-04-20 20:00] VITALS: BP 99/74
[2019-04-20] MEDS: ATORVASTATIN CALCIUM 20MG TABLET PO SCH (20:22)
[2019-04-20] MEDS: HYDROCODONE/ACETAMINOPHEN 5/325MG TABLET PO PRN (20:23)
[2019-04-20] MEDS: LACTULOSE 20G/30ML UDC PO PRN (20:23)
[2019-04-21] VITALS: BP 110/74
[2019-04-21 04:00] VITALS: BP 106/76
[2019-04-21] MEDS: HYDROCODONE/ACETAMINOPHEN 5/325MG TABLET PO PRN ×2 (06:59→22:00)
[2019-04-21 08:00] VITALS: BP 108/74
[2019-04-21] MEDS: DOCUSATE SODIUM SUGAR FREE 100MG/10ML UDC PO SCH (08:59)
[2019-04-21] MEDS: CARVEDILOL 3.125 MG TABLET PO SCH ×2 (09:00→21:00)
[2019-04-21] MEDS: ARIPIPRAZOLE 5MG TABLET PO SCH (09:00)
[2019-04-21] MEDS: ASPIRIN 81MG TABLET PO SCH (09:00)
[2019-04-21] MEDS: LOSARTAN POTASSIUM 100 MG TABLET PO SCH (09:00)
[2019-04-21] MEDS: CALCITRIOL 0.25MCG CAPSULE PO SCH (09:00)
[2019-04-21] MEDS: FAMOTIDINE 20MG TABLET PO SCH ×2 (09:00→22:00)
[2019-04-21] MEDS: ENOXAPARIN 40MG/0.4ML SYR SUBCUT SCH (09:02)
[2019-04-21] MEDS: LEVOFLOXACIN 250MG TABLET PO SCH (11:44)
[2019-04-21 12:00] VITALS: BP 118/64
[2019-04-21 16:00] VITALS: BP 112/68
[2019-04-21] MEDS: QUETIAPINE FUMARATE 25MG TABLET PO SCH (17:00)
[2019-04-21 20:00] VITALS: BP 139/56
[2019-04-21] MEDS: LACTULOSE 20G/30ML UDC PO PRN (21:58)
[2019-04-21] MEDS: ATORVASTATIN CALCIUM 20MG TABLET PO SCH (22:01)
[2019-04-22] VITALS: BP 118/85
[2019-04-22 04:00] VITALS: BP 143/85
[2019-04-22] MEDS: ARIPIPRAZOLE 5MG TABLET PO SCH (08:25)
[2019-04-22] MEDS: DOCUSATE SODIUM SUGAR FREE 100MG/10ML UDC PO SCH (08:25)
[2019-04-22] MEDS: ASPIRIN 81MG TABLET PO SCH (08:26)
[2019-04-22] MEDS: CALCITRIOL 0.25MCG CAPSULE PO SCH (08:26)
[2019-04-22] MEDS: QUETIAPINE FUMARATE 25MG TABLET PO SCH (08:26)
[2019-04-22] MEDS: CARVEDILOL 3.125 MG TABLET PO SCH ×2 (08:27→20:49)
[2019-04-22] MEDS: LOSARTAN POTASSIUM 100 MG TABLET PO SCH (08:27)
[2019-04-22] MEDS: ENOXAPARIN 40MG/0.4ML SYR SUBCUT SCH (08:28)
[2019-04-22] MEDS: FAMOTIDINE 20MG TABLET PO SCH ×2 (08:30→20:48)
[2019-04-22] MEDS: LEVOFLOXACIN 250MG TABLET PO SCH (10:51)
[2019-04-22 12:14] LABS: HEMATOCRIT 30.4 % (36.0-48.0); HEMOGLOBIN 10.3 g/dL (12.0-16.0); MEAN CORPUSCULAR HEMOGLOBIN 31.7 pg (28.0-32.0); MEAN CORPUSCULAR VOLUME 94.1 fL (81.0-99.0); PLATELET 271 x1000/uL (130-400); RED BLOOD CELL COUNT 3.23 mill/uL (4.2-5.4); RED CELL DISTRIBUTION WIDTH 14.3 % (11.6-14.6)
[2019-04-22 12:41] VITALS: BP 134/72
[2019-04-22 12:55] LABS: CHLORIDE 102 mEq/L (98-107)
[2019-04-22] MEDS ORDERED: POTASSIUM CHLORIDE 20MEQ TABLET SR PO NR ×2 (13:03→17:00)
[2019-04-22] MEDS ORDERED: ONDANSETRON HCL 4MG/2ML INJ IV PRN (13:15)
[2019-04-22] MEDS ORDERED: DEXT 5%/0.45% NACL KCL 40MEQ/L 1,000 ML IV SCH (14:30)
[2019-04-22] MEDS ORDERED: POTASSIUM CHLORIDE INJ 40 MEQ in DEXT 5% WATER 500 ML IV ONE ×2 (15:00→17:00)
[2019-04-22] MEDS ORDERED: DEXT 5%/0.45% NACL KCL 20MEQ/L 1,000 ML IV ONE ×2 (15:00→15:30)
[2019-04-22 16:00] VITALS: BP 134/95
[2019-04-22] MEDS ORDERED: DEXT 5%/0.45% NACL KCL 20MEQ/L 1,000 ML IV SCH (18:00)
[2019-04-22 20:00] VITALS: BP 117/88
[2019-04-22] MEDS ORDERED: KCL 20MEQ/100ML PREMIX 100 ML IV NR (20:00)
[2019-04-22] MEDS: ATORVASTATIN CALCIUM 20MG TABLET PO SCH (20:48)
[2019-04-22] MEDS: HYDROCODONE/ACETAMINOPHEN 5/325MG TABLET PO PRN (20:49)
[2019-04-23] VITALS (7 sets, daily range): BP systolic 102–145; BP diastolic 64–99
[2019-04-23 08:28] LABS: CHLORIDE 103 mEq/L (98-107)
[2019-04-23] MEDS: QUETIAPINE FUMARATE 25MG TABLET PO SCH (09:07)
[2019-04-23] MEDS: CARVEDILOL 3.125 MG TABLET PO SCH ×2 (09:07→20:30)
[2019-04-23] MEDS: ASPIRIN 81MG TABLET PO SCH (09:07)
[2019-04-23] MEDS: CALCITRIOL 0.25MCG CAPSULE PO SCH (09:07)
[2019-04-23] MEDS: FAMOTIDINE 20MG TABLET PO SCH ×2 (09:08→20:30)
[2019-04-23] MEDS: LOSARTAN POTASSIUM 100 MG TABLET PO SCH (09:08)
[2019-04-23] MEDS: DOCUSATE SODIUM SUGAR FREE 100MG/10ML UDC PO SCH (09:08)
[2019-04-23] MEDS: ENOXAPARIN 40MG/0.4ML SYR SUBCUT SCH (09:09)
[2019-04-23] MEDS: ARIPIPRAZOLE 5MG TABLET PO SCH (09:12)
[2019-04-23] MEDS: HYDROCODONE/ACETAMINOPHEN 5/325MG TABLET PO PRN ×2 (09:36→21:08)
[2019-04-23] MEDS: ATORVASTATIN CALCIUM 20MG TABLET PO SCH (20:30)
[2019-04-23] MEDS ORDERED: NA PHOS,M-B/NA PHOS,DI-BA ENEMA 118ML PR NR (22:15)
[2019-04-24] VITALS: BP 136/77
[2019-04-24] MEDS: DIPHENHYDRAMINE 50MG/ML VIAL IV PRN (01:05)
[2019-04-24 04:00] VITALS: BP 132/60
[2019-04-24 08:00] VITALS: BP 125/81
[2019-04-24] MEDS: CALCITRIOL 0.25MCG CAPSULE PO SCH (09:18)
[2019-04-24] MEDS: ARIPIPRAZOLE 5MG TABLET PO SCH (09:18)
[2019-04-24] MEDS: ASPIRIN 81MG TABLET PO SCH (09:18)
[2019-04-24] MEDS: FAMOTIDINE 20MG TABLET PO SCH ×2 (09:18→20:14)
[2019-04-24] MEDS: CARVEDILOL 3.125 MG TABLET PO SCH ×2 (09:19→20:15)
[2019-04-24] MEDS: LOSARTAN POTASSIUM 100 MG TABLET PO SCH (09:19)
[2019-04-24] MEDS: QUETIAPINE FUMARATE 25MG TABLET PO SCH (09:19)
[2019-04-24] MEDS: ENOXAPARIN 40MG/0.4ML SYR SUBCUT SCH (09:23)
[2019-04-24] MEDS: DOCUSATE SODIUM SUGAR FREE 100MG/10ML UDC PO SCH (09:23)
[2019-04-24 12:00] VITALS: BP 126/91
[2019-04-24 16:00] VITALS: BP 104/70
[2019-04-24 20:00] VITALS: BP 119/71
[2019-04-24] MEDS: ATORVASTATIN CALCIUM 20MG TABLET PO SCH (20:14)
[2019-04-24] MEDS ORDERED: KETOROLAC 15MG/ML VIAL IV NR (20:30)
[2019-04-25] VITALS: BP 104/65
[2019-04-25] MEDS: ACETAMINOPHEN 500MG TABLET PO PRN ×3 (01:58→18:44)
[2019-04-25 04:00] VITALS: BP 124/82
[2019-04-25 06:41] LABS: HEMATOCRIT 29.2 % (36.0-48.0); HEMOGLOBIN 9.9 g/dL (12.0-16.0); MEAN CORPUSCULAR HEMOGLOBIN 31.9 pg (28.0-32.0); MEAN CORPUSCULAR VOLUME 94.1 fL (81.0-99.0); PLATELET 278 x1000/uL (130-400); RED CELL DISTRIBUTION WIDTH 14.5 % (11.6-14.6)
[2019-04-25 07:02] LABS: CHLORIDE 102 mEq/L (98-107)
[2019-04-25 08:00] VITALS: BP 125/78
[2019-04-25] MEDS: DOCUSATE SODIUM SUGAR FREE 100MG/10ML UDC PO SCH (09:04)
[2019-04-25] MEDS: CALCITRIOL 0.25MCG CAPSULE PO SCH (09:05)
[2019-04-25] MEDS: CARVEDILOL 3.125 MG TABLET PO SCH ×2 (09:05→21:00)
[2019-04-25] MEDS: ARIPIPRAZOLE 5MG TABLET PO SCH (09:05)
[2019-04-25] MEDS: LOSARTAN POTASSIUM 100 MG TABLET PO SCH (09:05)
[2019-04-25] MEDS: ASPIRIN 81MG TABLET PO SCH (09:06)
[2019-04-25] MEDS: FAMOTIDINE 20MG TABLET PO SCH ×2 (09:06→21:53)
[2019-04-25] MEDS: ENOXAPARIN 40MG/0.4ML SYR SUBCUT SCH (09:09)
[2019-04-25] MEDS: QUETIAPINE FUMARATE 25MG TABLET PO SCH (10:36)
[2019-04-25] MEDS: LACTULOSE 20G/30ML UDC PO PRN (10:56)
[2019-04-25 12:00] VITALS: BP 90/64
[2019-04-25 16:00] VITALS: BP 104/77
[2019-04-25 20:00] VITALS: BP 107/72
[2019-04-25] MEDS: ATORVASTATIN CALCIUM 20MG TABLET PO SCH (21:53)
[2019-04-25] MEDS: DIPHENHYDRAMINE 50MG/ML VIAL IV PRN (23:25)
[2019-04-26] VITALS: BP 105/82
[2019-04-26] MEDS: ACETAMINOPHEN 500MG TABLET PO PRN ×2 (03:58→17:09)
[2019-04-26 04:00] VITALS: BP 107/71
[2019-04-26 08:00] VITALS: BP 132/77
[2019-04-26] MEDS: DOCUSATE SODIUM SUGAR FREE 100MG/10ML UDC PO SCH (09:27)
[2019-04-26] MEDS: LOSARTAN POTASSIUM 100 MG TABLET PO SCH (09:27)
[2019-04-26] MEDS: ASPIRIN 81MG TABLET PO SCH (09:29)
[2019-04-26] MEDS: QUETIAPINE FUMARATE 25MG TABLET PO SCH (09:29)
[2019-04-26] MEDS: CALCITRIOL 0.25MCG CAPSULE PO SCH (09:29)
[2019-04-26] MEDS: ARIPIPRAZOLE 5MG TABLET PO SCH (09:29)
[2019-04-26] MEDS: FAMOTIDINE 20MG TABLET PO SCH ×2 (09:29→21:30)
[2019-04-26] MEDS: CARVEDILOL 3.125 MG TABLET PO SCH ×2 (09:29→21:31)
[2019-04-26] MEDS: ENOXAPARIN 40MG/0.4ML SYR SUBCUT SCH (09:30)
[2019-04-26] MEDS: LACTULOSE 20G/30ML UDC PO PRN (11:49)
[2019-04-26 12:00] VITALS: BP 118/65
[2019-04-26 16:00] VITALS: BP 115/73
[2019-04-26] MEDS ORDERED: BISACODYL 10MG SUPP PR NR (16:15)
[2019-04-26 20:00] VITALS: BP 114/81
[2019-04-26] MEDS ORDERED: NA PHOS,M-B/NA PHOS,DI-BA ENEMA 118ML PR NR (21:00)
[2019-04-26] MEDS: ATORVASTATIN CALCIUM 20MG TABLET PO SCH (21:30)
[2019-04-26] MEDS: DIPHENHYDRAMINE 50MG/ML VIAL IV PRN (21:30)
[2019-04-26] MEDS ORDERED: MORPHINE SULFATE 2 MG/ML CPJ (NOT FOR IM USE) IV PRN (23:00)
[2019-04-27 04:00] VITALS: BP 108/72
[2019-04-27 08:00] VITALS: BP 123/85
[2019-04-27] MEDS: DOCUSATE SODIUM SUGAR FREE 100MG/10ML UDC PO SCH (10:03)
[2019-04-27] MEDS: ENOXAPARIN 40MG/0.4ML SYR SUBCUT SCH (10:03)
[2019-04-27] MEDS: ARIPIPRAZOLE 5MG TABLET PO SCH (10:04)
[2019-04-27] MEDS: CALCITRIOL 0.25MCG CAPSULE PO SCH (10:04)
[2019-04-27] MEDS: QUETIAPINE FUMARATE 25MG TABLET PO SCH (10:06)
[2019-04-27] MEDS: CARVEDILOL 3.125 MG TABLET PO SCH ×2 (10:06→20:30)
[2019-04-27] MEDS: FAMOTIDINE 20MG TABLET PO SCH ×2 (10:06→20:29)
[2019-04-27] MEDS: ASPIRIN 81MG TABLET PO SCH (10:06)
[2019-04-27] MEDS: LOSARTAN POTASSIUM 100 MG TABLET PO SCH (10:06)
[2019-04-27 12:00] VITALS: BP 120/74
[2019-04-27] MEDS: ACETAMINOPHEN 500MG TABLET PO PRN (14:56)
[2019-04-27 16:00] VITALS: BP 88/62
[2019-04-27 20:00] VITALS: BP 102/67
[2019-04-27] MEDS: ATORVASTATIN CALCIUM 20MG TABLET PO SCH (20:29)
[2019-04-27] MEDS: DIPHENHYDRAMINE 50MG/ML VIAL IV PRN (21:45)
[2019-04-28 04:00] VITALS: BP 148/73
[2019-04-28] MEDS: ACETAMINOPHEN 500MG TABLET PO PRN ×2 (05:05→15:26)
[2019-04-28 08:00] VITALS: BP 103/69
[2019-04-28] MEDS: CALCITRIOL 0.25MCG CAPSULE PO SCH (08:44)
[2019-04-28] MEDS: ENOXAPARIN 40MG/0.4ML SYR SUBCUT SCH (08:44)
[2019-04-28] MEDS: FAMOTIDINE 20MG TABLET PO SCH ×2 (08:44→21:10)
[2019-04-28] MEDS: ARIPIPRAZOLE 5MG TABLET PO SCH (08:45)
[2019-04-28] MEDS: QUETIAPINE FUMARATE 25MG TABLET PO SCH (08:45)
[2019-04-28] MEDS: ASPIRIN 81MG TABLET PO SCH (08:45)
[2019-04-28] MEDS: DOCUSATE SODIUM SUGAR FREE 100MG/10ML UDC PO SCH (09:00)
[2019-04-28] MEDS: CARVEDILOL 3.125 MG TABLET PO SCH ×2 (09:00→21:10)
[2019-04-28] MEDS: LOSARTAN POTASSIUM 100 MG TABLET PO SCH (09:00)
[2019-04-28 12:00] VITALS: BP 104/80
[2019-04-28 16:00] VITALS: BP 102/51
[2019-04-28] MEDS: HYDROCODONE/ACETAMINOPHEN 5/325MG TABLET PO PRN ×2 (16:50→23:25)
[2019-04-28] MEDS ORDERED: LORAZEPAM 2MG/ML CPJ IV PRN (17:00)
[2019-04-28 20:00] VITALS: BP 115/74
[2019-04-28] MEDS: ATORVASTATIN CALCIUM 20MG TABLET PO SCH (21:10)
[2019-04-29] VITALS (7 sets, daily range): BP systolic 97–133; BP diastolic 61–78
[2019-04-29 06:36] LABS: HEMATOCRIT 30.5 % (36.0-48.0); HEMOGLOBIN 10.8 g/dL (12.0-16.0); MEAN CORPUSCULAR HEMOGLOBIN 33.2 pg (28.0-32.0); MEAN CORPUSCULAR VOLUME 94.4 fL (81.0-99.0); PLATELET 294 x1000/uL (130-400); RED BLOOD CELL COUNT 3.24 mill/uL (4.2-5.4); RED CELL DISTRIBUTION WIDTH 14.2 % (11.6-14.6)
[2019-04-29 06:37] LABS: CHLORIDE 99 mEq/L (98-107)
[2019-04-29] MEDS: ASPIRIN 81MG TABLET PO SCH (09:38)
[2019-04-29] MEDS: CALCITRIOL 0.25MCG CAPSULE PO SCH (09:38)
[2019-04-29] MEDS: FAMOTIDINE 20MG TABLET PO SCH ×2 (09:38→20:42)
[2019-04-29] MEDS: ARIPIPRAZOLE 5MG TABLET PO SCH (09:38)
[2019-04-29] MEDS: HYDROCODONE/ACETAMINOPHEN 5/325MG TABLET PO PRN (09:39)
[2019-04-29] MEDS: DOCUSATE SODIUM SUGAR FREE 100MG/10ML UDC PO SCH (09:39)
[2019-04-29] MEDS: QUETIAPINE FUMARATE 25MG TABLET PO SCH (09:39)
[2019-04-29] MEDS: CARVEDILOL 3.125 MG TABLET PO SCH ×2 (09:39→20:42)
[2019-04-29] MEDS: LOSARTAN POTASSIUM 100 MG TABLET PO SCH (09:40)
[2019-04-29] MEDS: ENOXAPARIN 40MG/0.4ML SYR SUBCUT SCH (09:40)
[2019-04-29] MEDS: ATORVASTATIN CALCIUM 20MG TABLET PO SCH (20:42)
== END 2019-04-29 22:55 | DRG 689 ==
LOC: ER 11:23 → 5WST 04-11 00:29 → ENRESERV 04-11 00:52 → CANBEDREQ 04-11 08:13 → 6EST 04-19 00:32
PROVIDERS: ADMIT Internal Medicine; ATTEND Internal Medicine
DX: N39.0 Urinary tract infection, site not specified (principal); G93.41 Metabolic encephalopathy; D68.59 Other primary thrombophilia; I69.354 Hemiplegia and hemiparesis following cerebral infarction affecting left non-dominant side; E44.0 Moderate protein-calorie malnutrition; F03.90 Unspecified dementia, unspecified severity, without behavioral disturbance, psychotic disturbance, mood disturbance, and anxiety; I48.91 Unspecified atrial fibrillation; J44.9 Chronic obstructive pulmonary disease, unspecified; I10 Essential (primary) hypertension; I27.20 Pulmonary hypertension, unspecified; D64.9 Anemia, unspecified; B96.20 Unspecified Escherichia coli [E. coli] as the cause of diseases classified elsewhere; I36.1 Nonrheumatic tricuspid (valve) insufficiency; E87.6 Hypokalemia; M19.90 Unspecified osteoarthritis, unspecified site; Z87.440 Personal history of urinary (tract) infections; Z79.899 Other long term (current) drug therapy; Z88.0 Allergy status to penicillin; Z79.82 Long term (current) use of aspirin; Z68.20 Body mass index [BMI] 20.0-20.9, adult
CPT/HCPCS: 36415; 36600; 71045; 74018; 80048; 80076; 81003; 82140; 82375; 82805; 84132; 84439; 84443; 85027; 92610; 93005; 96374; 97162; 99285; A6261; C1893; J1200; J1630; J1650; J1885; J1956; J2270; J2405; J2765; J3480; J3490; J7060